=== PATIENT | female | born 1970 | race Caucasian/White ===

== ENCOUNTER → 2019-08-28 10:41 | Outpatient (CLI) | payer OTHER, SELFPAY ==
--- NOTE | ~2019-08-28 | XR_ITS ---
EXAMINATION: XR UGIAC wo kub DATE: 08/28/2019 11:36 INDICATION: Preprocedural evaluation prior to gastric bypass surgery. TECHNIQUE: Thick barium contrast with gas effervescent crystals were administered orally. Fluoroscop ic images of the esophagus, stomach, and proximal duodenum were obtained in various projections. The reafter, overhead images of the abdomen were performed. 1 minutes of fluroscopy. DAP 24. 35 images. FINDINGS: The esophagus is normal in caliber, without mucosal lesions or strictures. There is normal esophagea l peristalsis. There is a small hiatal hernia. Gastroesophageal reflux witnessed during the course o f the study. The gastric folds are normal. The proximal duodenum is also normal in appearance. IMPRESSION: 1. Small sliding hiatal hernia with gastroesophageal reflux. Reviewed, dictated and finalized at location B. SCRIPTS CURATOR
== END ==
PROVIDERS: PCP Family Medicine Sports Medicine
DX: Z01.818 Encounter for other preprocedural examination (principal); R13.10 Dysphagia, unspecified; K44.9 Diaphragmatic hernia without obstruction or gangrene
CPT/HCPCS: 74246

== ENCOUNTER → 2020-09-30 07:15 | Outpatient (CLI) | payer OTHER, SELFPAY ==
[2020-09-30 19:49] LABS: SARS-CoV-2 RNA PCR Negative
== END ==
PROVIDERS: PCP Family Medicine Sports Medicine; Visit Provider Family Medicine Sports Medicine
DX: Z20.822 Contact with and (suspected) exposure to COVID-19 (principal); R51.9 Headache, unspecified
CPT/HCPCS: C9803; U0003; U0005

== ENCOUNTER → 2020-11-25 15:35 | Outpatient (CLI) | payer OTHER, SELFPAY ==
--- NOTE | ~2020-11-25 | MR_ITS ---
EXAMINATION: MR brain IAC wo/w con EXAM DATE: 11/25/2020 16:25 INDICATION: Right hearing loss, vertigo right hearing loss. TECHNIQUE: Multi-sequential, multiplanar MR images of the brain, brainstem, internal auditory canals were obtained without contrast. Whole brain sagittal T1, axial diffusion, gradient echo (T2*), T1, T 2, FLAIR sequences obtained. High resolution coronal 3-D FIESTA, coronal T1 FSE, axial T1 FSPGR of t he internal auditory canals. Patient was then injected with 15 cc Multihance contrast intravenously. Postcontrast axial and coronal T1 weighted whole brain, axial and coronal high resolution T1 IAC seq uences obtained. There is no prior study for comparison. FINDINGS: No evidence of mastoid or middle ear opacification. The 7th/8th cranial nerve complexes a re symmetric, normal in course and caliber. No cerebellopontine angle masses. Posterior fossa unrem arkable. There are no areas of restricted diffusion to suggest acute infarction. There is no acute hemorrhage seen on the T2*, a hemosiderin sensitive sequence. No intraparenchymal brain mass. The ventricles a re normal in size. There are no extra-axial collections. Flow voids are seen in the cerebral arteri es on the T2-weighted sequences consistent with their expected patency. The orbits are unremarkable. Soft tissue is unremarkable. There are no areas of abnormal enhancement on the postcontrast image s. IMPRESSION: 1. Unremarkable brain MR brain IAC examination. Reviewed, dictated and finalized at location B.
[2020-11-25 15:56] LABS: Estimated Glomerular Filt Rate > 60
== END ==
DX: R42 Dizziness and giddiness (principal); H91.91 Unspecified hearing loss, right ear
CPT/HCPCS: 70553; A9577

== ENCOUNTER → 2021-11-25 10:40 | Outpatient (CLI) | payer OTHER, SELFPAY ==
--- NOTE | ~2021-11-25 | MM_ITS ---
EXAMINATION: MM screening manasa BI w oj HISTORY: Screening mammogram TECHNIQUE: Craniocaudal and mediolateral oblique 3-D tomosynthesis images were obtained and synthetic 2-D images were generated. CAD analysis was submitted and interpreted. COMPARISON: 10/20/2016 BREAST PARENCHYMAL COMPOSITION: The breasts are almost entirely fatty. FINDINGS: There is no suspicious mass, calcification, or architectural distortion to suggest malignan cy in either breast. There has been no suspicious interval change. IMPRESSION: 1. No mammographic evidence of malignancy. 2. Recommend routine screening mammography in one year. BI-RADS Category 1: Negative Reviewed, dictated and finalized at location A.
== END ==
PROVIDERS: PCP Family Medicine Sports Medicine; Visit Provider Obstetrics & Gynecology Gynecology
DX: Z12.31 Encounter for screening mammogram for malignant neoplasm of breast (principal)
CPT/HCPCS: 77063; 77067

== ENCOUNTER → 2022-07-03 10:46 | Outpatient (CLI) | payer OTHER, SELFPAY ==
--- NOTE | ~2022-07-03 | US_ITS ---
EXAMINATION: US pelvic complete DATE: 07/03/2022 11:12 INDICATION: Right adnexal fullness TECHNIQUE: Multiple transabdominal sonographic images of the pelvis were obtained. COMPARISON: 10/05/2016 FINDINGS: The uterus measures 8.6 x 3.5 x 4.8 cm. The endometrial complex measures 4 mm. The right ov elisa measures 3.5 x 2.9 x 3.4 cm. There is a 2.7 cm simple cyst of the right ovary. The left ovary suleman sures 2.3 x 1.1 x 2.3 cm. There is normal vascular flow in the ovaries. There is no free fluid in the pelvis. IMPRESSION: 1. No sonographic correlate for the patient's symptoms. Reviewed, dictated and finalized at location L. KILLER
== END ==
PROVIDERS: PCP Family Medicine Sports Medicine; Visit Provider Nurse Practitioner
DX: R19.09 Other intra-abdominal and pelvic swelling, mass and lump (principal)
CPT/HCPCS: 76856

== ENCOUNTER 2023-04-15 15:51 | Emergency (ER) | payer OTHER, SELFPAY ==
--- NOTE | ~2023-04-15 | XR_ITS ---
EXAMINATION: XR chest 1V portable Exam Date/Time: 04/15/2023 17:48 CDT HISTORY: chest pain Comparison: 11/19/2012. RESULT: Lines, tubes, and devices: None. Lungs and pleura: Clear. Cardiomediastinal silhouette: Stable. Other: No acute osseous or upper abdominal finding. IMPRESSION: No acute cardiopulmonary process. Reviewed, dictated and finalized at location K.
[2023-04-15 16:13] VITALS: BP 93/75; PULSE 93; RESP 16; TEMP 36.9; O2SAT 96
--- NOTE | 2023-04-15 16:17 | ECG_ITS ---
Measurements Intervals [place] Rate: 83 P: 60 IN: 152 QRS: 98 QRSD: 84 T: 67 QT: 379 QTc: 446 Interpretive Statements SINUS RHYTHM INDETERMINATE AXIS NO PREVIOUS ECG AVAILABLE FOR COMPARISON Electronically Signed On 04-16-2023 19:46:21 CDT by Taylor Poe M.D.
--- NOTE | 2023-04-15 16:17 | ED.GENADULT ---
HPI - General Adult General Chief complaint: Anxiety <Hawa Villaseñor GEAR TOOTH GRINDING MACHINE OPERATOR - Last Filed: 04/15/23 16:21> Stated complaint: anxiety attack <Hawa Villaseñor APRN - Last Filed: 04/15/23 16:21> Time Seen by Provider: 04/15/23 17:49 <Hawa Villaseñor GEAR TOOTH GRINDING MACHINE OPERATOR - Last Filed: 04/15/23 16:21> Source: patient <Ann Marie Crabtree PA-C - Last Filed: 04/16/23 03:12> Mode of arrival: ambulatory <Ann Marie Crabtree PA-C - Last Filed: 04/16/23 03:12> Limitations: no limitations <Ann Marie Crabtree PA-C - Last Filed: 04/16/23 03:12> History of Present Illness HPI narrative: Margy Duran is a 52 y/o female who presents with reports of having a panic attack, she states that she thinks it's her anxiey but she just doesn't know. She reports of having chest pain for about 5 days that sometimes radiates left and right and now in the middle of her chest. Her PCP is trying to get her started on something for her anxiety that works, but hasn't yet and now she is feeling a little short of breath. <Hawa Villaseñor APRN - Last Filed: 04/15/23 16:21> Margy Duran is a 52 y/o female who presents with reports of having a panic attack, she states that she thinks it's her anxiey but she just doesn't know. She reports of having chest pain for about 5 days that sometimes radiates left and right and now in the middle of her chest. Her PCP is trying to get her started on something for her anxiety that works, but hasn't yet and now she is feeling a little short of breath. Chest pain intermittent over the last 5 days, occurring up to 8 episodes per day. Feels as though stress and anxiety brings the chest pain on. Also reports cramping of her extremities related to hyperventilating. Patient has been on several different anxiety medications in the past and is currently being worked up for ADHD. Denies previous history of heart disease. Denies shortness of breath, lower extremity pain or swelling, nausea, vomiting, abdominal pain. <Ann Marie Crabtree PA-C - Last Filed: 04/16/23 03:12> Related Data Home medications: Home Medications Medication Instructions Recorded Confirmed metformin 500 mg tablet 500 mg PO QID 05/04/19 06/09/19 cyclobenzaprine 10 mg tablet 10 mg PO QPM 06/05/19 06/05/19 irbesartan 150 mg tablet 150 mg PO DAILY 06/05/19 06/09/19 <Hawa Champagne October, GEAR TOOTH GRINDING MACHINE OPERATOR - Last Filed: 04/15/23 16:21> Allergies/adverse reactions: Allergies Allergy/AdvReac Type Severity Reaction Status Date / Time niacin Allergy Severe Hypotension Verified 06/05/19 12:32 prochlorperazine Allergy Mild Agitated Verified 06/05/19 12:32 [From Compazine] <Hawa Champagne October, GEAR TOOTH GRINDING MACHINE OPERATOR - Last Filed: 04/15/23 16:21> Review of Systems Review of Systems: CONSTITUTIONAL: Denies fever, chills, or sweats. CARDIOVASCULAR: See HPI. RESPIRATORY: Denies cough or dyspnea. GASTROINTESTINAL: See HPI. GENITOURINARY: Denies dysuria or hematuria. SKIN: Denies rash or itching. MUSCULOSKELETAL: Denies back pain, joint pain, or myalgia. PSYCHIATRIC: See HPI. <Ann Marie Crabtree PA-C - Last Filed: 04/16/23 03:12> All systems reviewed & are unremarkable except as noted in HPI and below <Ann Marie Crabtree PA-C - Last Filed: 04/16/23 03:12> ON LICENSE OF [facility] Past Medical History Medical History: Medical History Colon cancer screening Dysphagia GERD (gastroesophageal reflux disease) Hyperlipidemia Hypertension Obesity, morbid, BMI 40.0-49.9 <Hawa Villaseñor, GEAR TOOTH GRINDING MACHINE OPERATOR - Last Filed: 04/15/23 16:21> Exam Narrative: GENERAL: Anxious appearing, obese with BMI of 33.7, non-toxic, in no acute distress. HEAD: Normocephalic, atraumatic. NECK: Supple. No adenopathy, no masses. RESPIRATORY: Airway patent, respirations nonlabored. Clear to auscultation bilaterally, no rales, rhonchi, wheezing. CARDIOVASCULAR: Regular rate and rhythm without murmurs, rubs, or gallops. Radial pulses 2+ and equal bi
[2023-04-15] MEDS: hydrOXYzine HCL 25 MG TABLET 50 MG PO (16:52)
[2023-04-15] MEDS: ONDANSETRON HCL ODT 4 MG TABLET PO (16:52)
[2023-04-15 18:48] LABS: Basophils Percent Auto 0.5 % (0.2-1.2); Eosinophils Absolute Auto 0.4 K/mm3 (0-0.3); Eosinophils Percent Auto 4.2 % (0-4.4); Hematocrit 42.1 % (37.0-47.0); Hemoglobin 14.7 g/dL (12.0-15.0); Immature Granulocyte Absolute 0.02 K/mm3 (0.00-0.031); Immature Granulocyte Percent A 0.2 % (0-0.5); Lymphocytes Absolute Auto 0.74 K/mm3 (0.9-3.2); Lymphocytes Percent Auto 8.6 % (18.3-44.2); Mean Corpuscular HGB Conc 34.9 g/dl (32-36); Mean Corpuscular Hemoglobin 30.7 pg (26-34); Mean Corpuscular Volume 87.9 fl (80-100); Mean Platelet Volume 10.2 fl (7.4-10.4); Monocytes Absolute Auto 0.4 K/mm3 (0.1-0.6); Neutrophils Percent Auto 81.5 % (45.5-73.1); Platelet Count Result 246 k/mm3 (150-375); Red Blood Count 4.79 M/mm3 (4.2-5.4); Red Cell Distribution Width 13.2 % (11.5-14.5); White Blood Count 8.6 K/mm3 (4.5-10.0)
[2023-04-15 18:59] LABS: Alanine Aminotransferase 24 U/L (6-35); Albumin Level 4.4 g/dL (3.5-5.1); Alkaline Phosphatase 73 U/L (38-126); Anion Gap 4 mmol/L (8-16); Aspartate Amino Transferase 35 U/L (14-36); Bilirubin,Total 0.9 mg/dL (0.2-1.3); Blood Urea Nitrogen 14 mg/dL (7-17); Calcium 9.3 mg/dL (8.4-10.2); Carbon Dioxide 33 mmol/L (22-30); Chloride 95 mmol/L (98-107); Estimated CRCL calculation 75 ml/min; Estimated Glomerular Filt Rate > 60; Glucose 111 mg/dL (65-110); Magnesium 1.8 mg/dL (1.6-2.3); Potassium 3.9 mmol/L (3.4-5.0); Sodium 132 mmol/L (137-145)
[2023-04-15 19:10] LABS: Troponin I < 0.012 ng/mL (0.000-0.034)
== END 2023-04-15 19:28 | disposition home or self-care (01) ==
PROVIDERS: Nurse Practitioner Family; Emergency Provider Physician Assistant; PCP Family Medicine Sports Medicine
DX: F41.9 Anxiety disorder, unspecified (principal); R07.89 Other chest pain; K21.9 Gastro-esophageal reflux disease without esophagitis; E78.5 Hyperlipidemia, unspecified; I10 Essential (primary) hypertension; E66.01 Morbid (severe) obesity due to excess calories; Z68.33 Body mass index [BMI] 33.0-33.9, adult
CPT/HCPCS: 36415; 71045; 80053; 83735; 84484; 85025; 93005; 99284; A9270

== ENCOUNTER 2024-12-28 00:20 | Day surgery (SDC) | payer OTHER, SELFPAY ==
[2024-12-07 15:33] VITALS: BMI 31.6
--- OUTSIDE RECORDS SUMMARY | 2024-12-28 00:24 | XMS_ITS | Patient Health Record ---
Author Organization [facility] [address] Address [address] [place] [address] Care Team Providers Care Academic Department Chair Name Role Phone Paul Garcia MD Primary Care Provider UnavailLucita Jarvis Unavailable [phone] Bartolome Ferguson Unavailable [phone] Radha Smith Unavailable [phone] Allergies Allergen (clinical drug ingredient) Drug/Non Drug Allergy documented on EMR Reaction Allergy Type Onset Date Status Niacin Unknown Drug Allergy 11/07/2023 Active Reason For Referral No Information Medications Medication SIG (Take, Route, Frequency, Duration) Notes Start Date End Date Status hydrOXYzine HCl 25 MG take 1/2 to 1 tab three times a day as needed Oral; Duration: 30 days Active Ondansetron 4 MG Oral 11/07/2023 Ac tive Triamterene-HCTZ 37.5-25 MG Oral 11/07/2023 Active Meclizine HCl 25 MG Oral 11/07/2023 Active Metaxalone 800 MG Oral 11/07/2023 A ctive ARIPiprazole 5 MG 1 tablet Oral Once a day; Duration: 90 days Active Methylphenidate HCl ER (OSM) 27 MG 1 tablet in the morning Orally Once a day; Duration: 30 days 12/23/2024 01/22/2025 Active Social History Tobacco Use: Social History Observation Description Date Details (start date - stop date) Former Smoker NA - NA Sex Assigned At : Social History Observation Description Sex Assigned At Female Tobacco Control (Standard) Question Answer Notes How long has it been since you last smoked? 5-10 years Tobacco use: Former smoker Section Notes: Social History Substance Use Do you or have you ever smoked tobacco?: Former smoker How much tobacco do you smoke?: None Do you or have you ever used e-cigarettes or vape?: Never used electronic cigarettes What was the date of your most recent tobacco screening?: 11/07/2023 Has tobacco cessation counseling been provided?: No What is your level of alcohol consumption?: Occasional How many years have you consumed alcohol?: 30 Do you use any illicit or recreational drugs?: No Have you used IV drugs?: No What is your level of caffeine consumption?: Occasional Education and Occupation What is the highest grade or level of school you have completed or the highest degree you have received?: Some college, no degree Are you currently employed?: Yes Who is your employer?: [employer] Marriage and Sexuality What is your relationship status?: Are you sexually active?: Yes Do you use protection during sex?: No How many children do you have?: 3 Home and Environment Are there any guns present in your home?: No Advance Directive Do you have an advance directive?: No Do you have a medical power of trademark attorney?: No Gender Identity and LGBTQ Identity Assigned sex at : Female First name used: LISA Social History Substance Use Do you or have you ever smoked tobacco?: Former smoker How much tobacco do you smoke?: None Do you or have you ever used e-cigarettes or vape?: Never used electronic cigarettes What was the date of your most recent tobacco screening?: 11/07/2023 Has tobacco cessation counseling been provided?: No What is your level of alcohol consumption?: Occasional How many years have you consumed alcohol?: 30 Do you use any illicit or recreational drugs?: No Have you used IV drugs?: No What is your level of caffeine consumption?: Occasional Education and Occupation What is the highest grade or level of school you have completed or the highest degree you have received?: Some college, no degree Are you currently employed?: Yes Who is your employer?: [employer] Marriage and Sexuality What is your relationship status?: Are you sexually active?: Yes Do you use protection during sex?: No How many children do you have?: 3 Home and Environment Are there any guns present in your home?: No Advance Directive Do you have an advance directive?: No Do you have a medical power of trademark attorney?: No Public Health and Travel Have you been to an area known to be high risk for COVID-19?: No Gender Identity and LGBTQ Identity Assigned sex at : Female First name used: LISA Social History Substance Use Do you or have you ever smoked tobacco?: Former smoker How much tobacco do you smoke?: None Do you or have you ever used e-cigarettes or vape?: Never used electronic cigarettes What was the date of your most recent tobacco screening?: 11/07/2023 Has tobacco cessation counseling been provided?: No What is your level of alcohol consumption?: Occasional How many years have you consumed alcohol?: 30 Do you use any illicit or recreational drugs?: No Have you used IV drugs?: No What is your level of caffeine consumption?: Occasional Education and Occupation What is the highest grade or level of school you have completed or the highest degree you have received?: Some college, no degree Are you currently employed?: Yes Who is your employer?: [employer] Marriage and Sexuality What is your relationship status?: Are you sexually active?: Yes Do you use protection during sex?: No How many children do you have?: 3 Home and Environment Are there any guns present in your home?: No Advance Directive Do you have an advance directive?: No Do you have a medical power of trademark attorney?: No Gender Identity and LGBTQ Identity Assigned sex at : Female First name used: LISA Social History Substance Use Do you or have you ever smoked tobacco?: Former smoker How much tobacco do you smoke?: None Do you or have you ever used e-cigarettes or vape?: Never used electronic cigarettes What was the date of your most recent tobacco screening?: 11/07/2023 Has tobacco cessation counseling been provided?: No What is your level of alcohol consumption?: Occasional How many years have you consumed alcohol?: 30 Do you use any illicit or recreational drugs?: No Have you used IV drugs?: No What is your level of caffeine consumption?: Occasional Education and Occupation What is the highest grade or level of school you have completed or the highest degree you have received?: Some college, no degree Are you currently employed?: Yes Who is your employer?: [employer] Marriage and Sexuality What is your relationship status?: Are you sexually active?: Yes Do you use protection during sex?: No How many children do you have?: 3 Home and Environment Are there any guns present in your home?: No Advance Directive Do you have an advance directive?: No Do you have a medical power of trademark attorney?: No Gender Identity and LGBTQ Identity Assigned sex at : Female First name used: LISA Social History Substance Use Do you or have you ever smoked tobacco?: Former smoker How much tobacco do you smoke?: None Do you or have you ever used e-cigarettes or vape?: Never used electronic cigarettes What was the date of your most recent tobacco screening?: 11/07/2023 Has tobacco cessation counseling been provided?: No What is your level of alcohol consumption?: Occasional How many years have you consumed alcohol?: 30 Do you use any illicit or recreational drugs?: No Have you used IV drugs?: No What is your level of caffeine consumption?: Occasional Education and Occupation What is the highest grade or level of school you have completed or the highest degree you have received?: Some college, no degree Are you currently employed?: Yes Who is your employer?: [employer] Marriage and Sexuality What is your relationship status?: Are you sexually active?: Yes Do you use protection during sex?: No How many children do you have?: 3 Home and Environment Are there any guns present in your home?: No Advance Directive Do you have an advance directive?: No Do you have a medical power of trademark attorney?: No Gender Identity and LGBTQ Identity Assigned sex at : Female First name used: LISA Problems Problem Type SNOMED Code ICD Code Onset Dates Problem Status W/U Status Risk Notes Problem Mild recurrent major depression (38453429) Major depressive disorder, recurrent, mild (F33.0) Active confirmed Problem Moderate recurrent major depression (99960530) Major depressive disorder, recurrent, moderate (F33.1) 11/07/19 Active confirmed Problem Generalized anxiety disorder (63342471) Generalized anxiety disorder (F41.1) 11/07/19 Active confirmed Problem Posttraumatic stress disorder (15643469) Post-traumatic stress disorder, chronic (F43.12) 11/07/19 Active confirmed Problem Attention deficit hyperactivity disorder, combined type (94503509) Attention-deficit hyperactivity disorder, combined type (F90.2) 11/07/19 Active confirmed Problem Panic disorder (532986729) Panic attacks (F41.0) Active confirmed Vital Signs Heart Rate 102 /min 05/04/2024 Height-cm 160.02 cm 10/14/2024 Blood pressure diastolic 74 mm Hg 05/04/2024 Weight-kg 85.73 kg 05/04/2024 Height 63.00 in 10/14/2024 Blood pressure systolic 113 mm Hg 05/04/2024 Weight 189 lbs 05/04/2024 BMI 33.48 kg/m2 05/04/2024 Encounters Encounter Location Date Provider Diagnosis [address] [address] 01/09/2024 Radha Smith Major depressive disorder, recurrent, moderate F33.1 ; Attention-deficit hyperactivity disorder, combined type F90.2 ; Generalized anxiety disorder F41.1 ; Panic attacks F41.0 and Post-traumatic stress disorder, chronic F43.[address] [address] 04/03/2024 Radha Smith Major depressive disorder, recurrent, moderate F33.1 ; Attention-deficit hyperactivity disorder, combined type F90.2 ; Generalized anxiety disorder F41.1 ; Panic attacks F41.0 and Post-traumatic stress disorder, chronic F43.[address] [address] 05/04/2024 Lucita Mcgraw Major depressive disorder, recurrent, moderate F33.1 ; Generalized anxiety disorder F41.1 ; Panic attacks F41.0 ; Attention-deficit hyperactivity disorder, combined type F90.2 and Post-traumatic stress disorder, chronic F43.[address] [address] 09/14/2024 Lucita Mcgraw [address] [address] 09/14/2024 Lucita Mcgraw Major depressive disorder, recurrent, moderate F33.1 ; Generalized anxiety disorder F41.1 ; Panic attacks F41.0 ; Attention-deficit hyperactivity disorder, combined type F90.2 and Post-traumatic stress disorder, chronic F43.[address] [place] [address] 10/14/2024 Lucita Hagopian Attention-deficit hyperactivity disorder, combined type F90.2 ; Major depressive disorder, recurrent, mild F33.0 ; Generalized anxiety disorder F41.1 ; Post-traumatic stress disorder, chronic F43.12 ; Panic attacks F41.0 and Encounter for screening for depression Z13.[address] [address] 12/23/2024 Lucita Mcgraw Attention-deficit hyperactivity disorder, combined type F90.[address] [address] 03/25/2024 Radha Sarah Major depressive disorder, recurrent, moderate F33.1 and Attention-deficit hyperactivity disorder, combined type F90.[address] [address] 09/04/2024 Lucita Mcgraw Major depressive disorder, recurrent, moderate F33.1 and Attention-deficit hyperactivity disorder, combined type F90.2 [facility] [address] [address] 11/20/2024 Lucita Mcgraw Attention-deficit hyperactivity disorder, combined type F90.[address] [address] 10/14/2024 Lucita Mcgraw Attention-deficit hyperactivity disorder, combined type F90.2 Assessments Encounter Date Diagnosis (ICD Code) Assessment Notes Treatment Notes Treatment Clinical Notes Section Notes 01/09/2024 Major depressive disorder, recurrent, moderate (ICD-10 - F33.1) cont abilify 5mg daily discuss options, increase atomoxetine or leave as is and see if life settles. She would like to increase, education medications and treatment course. consider counseling-says right now is not the time with bills fu 2 months, earlier if concerns notes:-workup done per pcp and cardiology (cleared for ADHD meds)-hx stimulant misuse younger, possibly self medicating ADHD, but caution. hx cannabis gummies.-has tried 3 SSRI, an SNRI, wellbutrin, trintellix, generally not tolerated, often more irritable; propranolol. 03/25/2024 Major depressive disorder, recurrent, moderate (ICD-10 - F33.1) 04/03/2024 Major depressive disorder, recurrent, moderate (ICD-10 - F33.1) cont abilify 5mg daily increase anxiety and irritable with stressors. discuss options: increase abilify, retry/start anxiety medication, increase atomoxetine, pros/cons she would rather not make changes before the wedding, in case has issues/side effects. review r/b/se prioritize sleep recommend therapy-cost prohibitive f/u 1 month, earlier if concerns notes:-workup done per pcp and cardiology (cleared for ADHD meds)-hx stimulant misuse younger, possibly self medicating ADHD, but caution. hx cannabis gummies.-has tried 3 SSRI, an SNRI, wellbutrin, trintellix, generally not tolerated, often more irritable; propranolol. 05/04/2024 Major depressive disorder, recurrent, moderate (ICD-10 - F33.1) MDD: - continue Abilify 2 mg daily; consider increase next visit dependent on symptoms and situational factors Anxiety/Panic: - Continue current hydroxyzine regimen as needed for anxiety/panic attacks. - continue clonidine 0.1 mg twice a day - Encourage non-pharmacolog ical anxiety management techniques, such as deep breathing exercises, mindfulness, and relaxation techniques. - Encourage good sleep hygiene, including maintaining a consistent sleep schedule, creating a relaxing bedtime routine.. - Reassess sleep quality during the next follow-up appointment and consider further evaluation or intervention if necessary. ADHD: - Continue atomoxetine 60 mg daily - Reports no significant changes in symptoms since the dosage increase, but notes situational factors may be affecting assessment. 09/04/2024 Major depressive disorder, recurrent, moderate (ICD-10 - F33.1) 09/14/2024 Major depressive disorder, recurrent, moderate (ICD-10 - F33.1) Attention Deficit Hyperactivity Disorder (ADHD) Assessment: Patient reports that Strattera (atomoxetine) at the current dose of 60 mg is not effective in managing her ADHD symptoms. She is currently working four jobs, indicating a busy schedule that may be impacting symptom management. Previous medication trials and dosage adjustments were not discussed in detail. Plan: - Increase Strattera (atomoxetine) from 60 mg to 80 mg daily - Follow up in 4 weeks to assess efficacy of increased dose - If no improvement noted at follow-up, consider exploring alternative treatment options Anxiety Assessment: Patient reports ongoing benefit from as-needed use of hydroxyzine for anxiety management, describing it as her saving tiffani. Clonidine, previously prescribed for anxiety (0.1 mg twice daily), is not being taken due to sedation and difficulty waking up, indicating low tolerance for medications with sedating effects. Plan: - Continue hydroxyzine as needed for anxiety - Discontinue clonidine 0.1 mg twice daily Depression Assessment: Reports stable mood. Plan: - Continue abilify 5 mg daily 10/14/2024 Major depressive disorder, recurrent, mild (ICD-10 - F33.0) 10/14/2024 Attention-defici t hyperactivity disorder, combined type (ICD-10 - F90.2) 10/14/2024 Attention-defici t hyperactivity disorder, combined type (ICD-10 - F90.2) 11/20/2024 Attention-defici t hyperactivity disorder, combined type (ICD-10 - F90.2) 12/23/2024 Attention-defici t hyperactivity disorder, combined type (ICD-10 - F90.2) 10/14/2024 Generalized anxiety disorder (ICD-10 - F41.1) 09/14/2024 Generalized anxiety disorder (ICD-10 - F41.1) Attention Deficit Hyperactivity Disorder (ADHD) Assessment: Patient reports that Strattera (atomoxetine) at the current dose of 60 mg is not effective in managing her ADHD symptoms. She is currently working four jobs, indicating a busy schedule that may be impacting symptom management. Previous medication trials and dosage adjustments were not discussed in detail. Plan: - Increase Strattera (atomoxetine) from 60 mg to 80 mg daily - Follow up in 4 weeks to assess efficacy of increased dose - If no improvement noted at follow-up, consider exploring alternative treatment options Anxiety Assessment: Patient reports ongoing benefit from as-needed use of hydroxyzine for anxiety management, describing it as her saving tiffani. Clonidine, previously prescribed for anxiety (0.1 mg twice daily), is not being taken due to sedation and difficulty waking up, indicating low tolerance for medications with sedating effects. Plan: - Continue hydroxyzine as needed for anxiety - Discontinue clonidine 0.1 mg twice daily Depression Assessment: Reports stable mood. Plan: - Continue abilify 5 mg daily 09/04/2024 Attention-defici t hyperactivity disorder, combined type (ICD-10 - F90.2) 05/04/2024 Generalized anxiety disorder (ICD-10 - F41.1) MDD: - continue Abilify 2 mg daily; consider increase next visit dependent on symptoms and situational factors Anxiety/Panic: - Continue current hydroxyzine regimen as needed for anxiety/panic attacks. - continue clonidine 0.1 mg twice a day - Encourage non-pharmacolog ical anxiety management techniques, such as deep breathing exercises, mindfulness, and relaxation techniques. - Encourage good sleep hygiene, including maintaining a consistent sleep schedule, creating a relaxing bedtime routine.. - Reassess sleep quality during the next follow-up appointment and consider further evaluation or intervention if necessary. ADHD: - Continue atomoxetine 60 mg daily - Reports no significant changes in symptoms since the dosage increase, but notes situational factors may be affecting assessment. 04/03/2024 Attention-defici t hyperactivity disorder, combined type (ICD-10 - F90.2) cont atomoxetine 60mg qam past testing supports, had one malingering indicatordid get cardiac clearance letter 03/25/2024 Attention-defici t hyperactivity disorder, combined type (ICD-10 - F90.2) 01/09/2024 Attention-defici t hyperactivity disorder, combined type (ICD-10 - F90.2) increase atomoxetine to 60mg qam past testing supports, had one malingering indicatordid get cardiac clearance letter 01/09/2024 Generalized anxiety disorder (ICD-10 - F41.1) cont clonidine 0.1mg BID minimize caffeine 04/03/2024 Generalized anxiety disorder (ICD-10 - F41.1) cont clonidine 0.1mg BID minimize caffeine 05/04/2024 Panic attacks (ICD-10 - F41.0) MDD: - continue Abilify 2 mg daily; consider increase next visit dependent on symptoms and situational factors Anxiety/Panic: - Continue current hydroxyzine regimen as needed for anxiety/panic attacks. - continue clonidine 0.1 mg twice a day - Encourage non-pharmacolog ical anxiety management techniques, such as deep breathing exercises, mindfulness, and relaxation techniques. - Encourage good sleep hygiene, including maintaining a consistent sleep schedule, creating a relaxing bedtime routine.. - Reassess sleep quality during the next follow-up appointment and consider further evaluation or intervention if necessary. ADHD: - Continue atomoxetine 60 mg daily - Reports no significant changes in symptoms since the dosage increase, but notes situational factors may be affecting assessment. 09/14/2024 Panic attacks (ICD-10 - F41.0) Attention Deficit Hyperactivity Disorder (ADHD) Assessment: Patient reports that Strattera (atomoxetine) at the current dose of 60 mg is not effective in managing her ADHD symptoms. She is currently working four jobs, indicating a busy schedule that may be impacting symptom management. Previous medication trials and dosage adjustments were not discussed in detail. Plan: - Increase Strattera (atomoxetine) from 60 mg to 80 mg daily - Follow up in 4 weeks to assess efficacy of increased dose - If no improvement noted at follow-up, consider exploring alternative treatment options Anxiety Assessment: Patient reports ongoing benefit from as-needed use of hydroxyzine for anxiety management, describing it as her saving tiffani. Clonidine, previously prescribed for anxiety (0.1 mg twice daily), is not being taken due to sedation and difficulty waking up, indicating low tolerance for medications with sedating effects. Plan: - Continue hydroxyzine as needed for anxiety - Discontinue clonidine 0.1 mg twice daily Depression Assessment: Reports stable mood. Plan: - Continue abilify 5 mg daily 10/14/2024 Post-traumatic stress disorder, chronic (ICD-10 - F43.12) 10/14/2024 Panic attacks (ICD-10 - F41.0) 09/14/2024 Attention-defici t hyperactivity disorder, combined type (ICD-10 - F90.2) Attention Deficit Hyperactivity Disorder (ADHD) Assessment: Patient reports that Strattera (atomoxetine) at the current dose of 60 mg is not effective in managing her ADHD symptoms. She is currently working four jobs, indicating a busy schedule that may be impacting symptom management. Previous medication trials and dosage adjustments were not discussed in detail. Plan: - Increase Strattera (atomoxetine) from 60 mg to 80 mg daily - Follow up in 4 weeks to assess efficacy of increased dose - If no improvement noted at follow-up, consider exploring alternative treatment options Anxiety Assessment: Patient reports ongoing benefit from as-needed use of hydroxyzine for anxiety management, describing it as her saving tiffani. Clonidine, previously prescribed for anxiety (0.1 mg twice daily), is not being taken due to sedation and difficulty waking up, indicating low tolerance for medications with sedating effects. Plan: - Continue hydroxyzine as needed for anxiety - Discontinue clonidine 0.1 mg twice daily Depression Assessment: Reports stable mood. Plan: - Continue abilify 5 mg daily 05/04/2024 Attention-defici t hyperactivity disorder, combined type (ICD-10 - F90.2) MDD: - continue Abilify 2 mg daily; consider increase next visit dependent on symptoms and situational factors Anxiety/Panic: - Continue current hydroxyzine regimen as needed for anxiety/panic attacks. - continue clonidine 0.1 mg twice a day - Encourage non-pharmacolog ical anxiety management techniques, such as deep breathing exercises, mindfulness, and relaxation techniques. - Encourage good sleep hygiene, including maintaining a consistent sleep schedule, creating a relaxing bedtime routine.. - Reassess sleep quality during the next follow-up appointment and consider further evaluation or intervention if necessary. ADHD: - Continue atomoxetine 60 mg daily - Reports no significant changes in symptoms since the dosage increase, but notes situational factors may be affecting assessment. 04/03/2024 Panic attacks (ICD-10 - F41.0) cont hydroxyzine 25mg, take 1/2 to 1 tab TID prn infrequent use as above 01/09/2024 Panic attacks (ICD-10 - F41.0) cont hydroxyzine 25mg, take 1/2 to 1 tab TID prn infrequent use as above 01/09/2024 Post-traumatic stress disorder, chronic (ICD-10 - F43.12) probableas above 05/04/2024 Post-traumatic stress disorder, chronic (ICD-10 - F43.12) MDD: - continue Abilify 2 mg daily; consider increase next visit dependent on symptoms and situational factors Anxiety/Panic: - Continue current hydroxyzine regimen as needed for anxiety/panic attacks. - continue clonidine 0.1 mg twice a day - Encourage non-pharmacolog ical anxiety management techniques, such as deep breathing exercises, mindfulness, and relaxation techniques. - Encourage good sleep hygiene, including maintaining a consistent sleep schedule, creating a relaxing bedtime routine.. - Reassess sleep quality during the next follow-up appointment and consider further evaluation or intervention if necessary. ADHD: - Continue atomoxetine 60 mg daily - Reports no significant changes in symptoms since the dosage increase, but notes situational factors may be affecting assessment. 04/03/2024 Post-traumatic stress disorder, chronic (ICD-10 - F43.12) probableas above 09/14/2024 Post-traumatic stress disorder, chronic (ICD-10 - F43.12) Attention Deficit Hyperactivity Disorder (ADHD) Assessment: Patient reports that Strattera (atomoxetine) at the current dose of 60 mg is not effective in managing her ADHD symptoms. She is currently working four jobs, indicating a busy schedule that may be impacting symptom management. Previous medication trials and dosage adjustments were not discussed in detail. Plan: - Increase Strattera (atomoxetine) from 60 mg to 80 mg daily - Follow up in 4 weeks to assess efficacy of increased dose - If no improvement noted at follow-up, consider exploring alternative treatment options Anxiety Assessment: Patient reports ongoing benefit from as-needed use of hydroxyzine for anxiety management, describing it as her saving tiffani. Clonidine, previously prescribed for anxiety (0.1 mg twice daily), is not being taken due to sedation and difficulty waking up, indicating low tolerance for medications with sedating effects. Plan: - Continue hydroxyzine as needed for anxiety - Discontinue clonidine 0.1 mg twice daily Depression Assessment: Reports stable mood. Plan: - Continue abilify 5 mg daily 10/14/2024 Encounter for screening for depression (ICD-10 - Z13.31) 10/14/2024 Other Lisa Duran, adult female with history of ADHD, presenting with ongoing irritability, racing thoughts, and anxiety despite current treatment with atomoxetine and aripiprazole. Attention Deficit Hyperactivity Disorder (ADHD) Assessment: Patient reports ongoing symptoms of ADHD, including irritability, racing thoughts, and difficulty with focus. Current treatment with atomoxetine 80 mg and aripiprazole 5 mg has been ineffective in managing symptoms. Patient describes feeling constantly going 100 miles an hour mentally, which leads to frustration when others cannot keep up with her thought process. Previous trial of atomoxetine showed initial improvement but efficacy waned over time. Patient denies current use of cannabis or other substances, with last reported use of stimulants in high school. Given the persistence of symptoms and inadequate response to current medication regimen, a trial of a different medication class is warranted. Plan: - Discontinue atomoxetine 80 mg - Initiate methylphenidate extended-release (Concerta) 27 mg PO daily - Starting at 27 mg due to patient's lower blood pressure - Informed patient that this medication may help alleviate some anxiety symptoms - Continue aripiprazole 5 mg (dose and frequency not specified in transcript) - Urine drug test required at next visit to confirm medication adherence - Follow-up appointment in 3-4 weeks - In-person visit required for next appointment Anxiety Assessment: Patient reports persistent anxiety, stating she is always anxious about something. While the severity has decreased, worry remains constant. Patient has experienced near-panic attacks, particularly in public spaces like [employer], but has been able to manage these episodes without full escalation. Patient uses hydroxyzine as needed for anxiety management, particularly in social situations. Recent life stressors, including her daughter's surgical complications and the loss of a pet, have contributed to heightened anxiety. Plan: - Continue hydroxyzine as needed for anxiety (dose and frequency not specified in transcript) - Monitor anxiety symptoms with the initiation of methylphenidate, as it may help alleviate some anxiety - Encourage continued use of coping strategies that have been effective in preventing panic attacks Emotional Eating Assessment: Patient acknowledges occasional emotional eating, particularly during times of stress. She reports some overindulgence following the loss of her dog and mentions stress-induced candy consumption. However, patient has a history of weight loss surgery which limits her ability to overeat without experiencing physical discomfort. Plan: - Monitor eating habits and emotional triggers - Encourage healthy coping mechanisms for stress management Plan Of Treatment Next Appt Details Provider Name:Lucita Carty natalio, 01/04/2025 03:30:00 PM, [address], [facility] [address], [place], [address], Insurance Providers Payer Name Payer Address Payer Phone Subscriber Number Group Number Insured Name Patient Relationship to Insured Coverage Start Date Coverage End Date [facility] [address] [place] [phone] [id number] ANNE DURAN Self - patient is the insured Medical (General) History Medical History History ICD Code Problems: Attention deficit hyperactivit y disorder, combined type Chronic post-traumatic stress disorder Generalized anxiety disorder Moderate recurrent major depression Obesity Panic attack , Surgical History Surgery Date(Month/Year) Tonsilectomy/adenoids 06/24/1982 Endometrial ablation (29386) with tubal 06/24/2002
--- OUTSIDE RECORDS SUMMARY | 2024-12-28 00:25 | XMS_ITS | Clinical Summary ---
Author Organization [facility] Address [facility] [place] [address] Care Team Providers Care Electrical Prospecting Operator Name Role Phone Kareem Torres MD Primary Care Provider [phone] Gagan Reddy MD Unavailable [phone] Social History Tobacco Use Types Packs/Day Years Used Date Smoking Tobacco: Never Assessed Comments Unknown Sex and Gender Information Value Date Recorded Sex Assigned at Not on file Legal Sex Female 12:58 PM CDT Gender Identity Not on file Sexual Orientation Not on file Plan of Treatment Health Maintenance Due Date Last Done Comments Cervical Cancer Screening Pa p Smear (Age 30 to 64) Every 3 Years 1971 Colorectal Cancer Screening Colonoscopy (10 Years) 1971 Annual Physical 1974 Hepatitis C 1989 DTaP, Tdap and Td Vaccines ( 1 - Tdap) 1990 Hepatitis B Vaccines (1 of 3 - 19+ 3-dose series) 1990 Cervical Cancer Screening Pa p with HPV Testing (Age 30 to 64) Every 5 Years 2001 Cervical Cancer Screening with HPV 2001 Mammogram Screening 2011 Pneumococcal Vaccine: 50+ Ye ars (1 of 1 - PCV) 2021 Zoster Vaccines (1 of 2) 2021 COVID-19 Vaccine (2023-2 5 season) 2024 Meningococcal B Vaccine Aged Out No l onger eligible based on patient's age to complete this topic Meningococcal Vaccine Aged Out No zachary edgardo eligible based on patient's age to complete this topic RSV Immunizations Under 20 Months Aged Out No longer eligible based on patient's age to complete this topic Insurance [facility] Care Teams Electrical Prospecting Operator Relationship Specialty Start Date End Date Kareem Torres MD [address] [place] [address] [address] [place] [id number] PCP - General FAMILY PRACTICE 12/05/22 Gagan Reddy MD [address] [place] [address] FAMILY MEDICINE SPORTS MEDICINE 12/05/22
--- OUTSIDE RECORDS SUMMARY | 2024-12-28 00:25 | XMS_ITS ---
Author Organization [facility] Address [address] [place] [address] Care Team Providers Care Lead Printer Name Role Phone Paul Garcia MD Primary Care Provider Lucita Ty Unavailable [phone] Bartolome Portillo Unavailable [phone] REASON FOR VISIT UDS for controlled medication Social History Sex Assigned At : Social History Observation Description Sex Assigned At Female Encounters Encounter Location Date Provider Diagnosis [facility] [address] [place] [address] 10/15/2024 Bartolome Portillo Plan Of Treatment Next Appt Details Provider Name:Lucita lance, 01/04/2025 03:30:00 PM, [address], [address], [place], [address], Progress Notes * ANNE HASTINGS MDOB:1969 (54 yo F)Acc No.[id number]:10/15/2024 Progress Note Patient: Jong NANE EL Provider: Emily PORTILLO MD :1970 A ge:54 Y S ex:Female Date:10/15/2024 Address:[address], [facility] Pcp:Paul Garcia MD Subjective: * Chief Complaints: * 1 . UDS for controlled medication. * Active Problem List F33.1 Major depressive dis order, recurrent, moderate Onset Date:11/07/2023Modified On:12/09/2023U Status:confirmed F41.1 Generalized anxiety disorder Onset Date:11/07/2023Modified On:12/09/2023 Status:confirmed F41.0 Panic attacks Modified On:12/09/2023 Status:confirmed F90.2 Attention-deficit hy peractivity disorder, combined type Onset Date:11/07/2023Modified On:12/09/2023U Status:confirmed F43.12 Post-traumatic stres s disorder, chronic Onset Date:11/07/2023Modified On:12/09/2023U Status:confirmed F33.0 Major depressive dis order, recurrent, mild Modified On:10/14/2024 Status:confirmed * Medical History: Objective: * Vitals: Assessment: Plan: * Treatment: * Billing Information: * Visit Code: * Procedure Codes: * Electronic signature of Constantin Portillo MD on 12/28/2024 at 12:24 AM CDT Sign off status: Pending * Provider: Emily PORTILLO MD Date: 0 10/15/2024 Generated for Marcy beltran/Rubens/Miyaitting on: 12/28/2024 12:24 AM CDT
--- OUTSIDE RECORDS SUMMARY | 2024-12-28 00:25 | XMS_ITS | Clinical Summary ---
Author Organization [facility] Address [address] [place] [address] Care Team Providers Care Glue Sprayer Name Role Phone Unavailable Primary Care Provider Unavailabl e Source Comments [facility],non-owned Affiliates and Associated Physician Practices is amultiple site organization consisting of ambulatory clinics and hospital sitesin [place], [place], [place] and [place]. This disclosure is being madepursuant to the Care Everywhere program and may not contain all information available regarding this patient. Last updated 18.[facility] Allergies Active Allergy Reactions Criticality Noted Date Comments Niacin Other 08/06/2019 hypotensive Medications * Be aware that medications may not be up to date on this document. Alwaysverify current medications with the patient. metFORMIN (GLUCOPHAGE) 500 MG tablet Take 2,000 mg by mouth once daily Active LOSARTAN POTASSIUM-HCTZ PO Active fenofibrate (FENOGLIDE) 120 MG Take 120 mg by mouth once daily Active Multiple Vitamins-Mineral s (MULTIVITAL PO) Active Social History Tobacco Use Types Packs/Day Years Used Date Smoking Tobacco: Former Cigarettes Q uit: 2018 Smokeless Tobacco: Never Tobacco Cessation:Counseling Given: Yes Comments No Sex and Gender Information Value Date Recorded Sex Assigned at Not on file Legal Sex Female 6:20 AM TISSUE TECHNOLOGIST Gender Identity Not on file Sexual Orientation Not on file Last Filed Vital Signs Vital Sign Reading Time Taken Comments Blood Pressure 126/86 08/06/2019 6:52 PM TISSUE TECHNOLOGIST Pulse 106 08/06/2019 6:52 PM TISSUE TECHNOLOGIST Temperature 36.8 C (98.3 F) 08/06/2019 6:52 PM TISSUE TECHNOLOGIST Respiratory Rate 18 08/06/2019 6:52 PM TISSUE TECHNOLOGIST Oxygen Saturation 98% 08/06/2019 6:52 PM TISSUE TECHNOLOGIST Inhaled Oxygen Concentration - - Weight 104.3 kg (230 lb) 08/06/2019 6:52 PM TISSUE TECHNOLOGIST Height 160 cm (5' 3) 08/06/2019 6:52 PM TISSUE TECHNOLOGIST Body Mass Index 40.74 08/06/2019 6:52 PM TISSUE TECHNOLOGIST Plan of Treatment Health Maintenance Due Date Last Done Comments COLOGUARD (AGES 45-75) - COL ON CA SCREENING 1971 COLON MONITORING 1971 COLONOSCOPY - COLON CA SCREENING 1971 CT COLONOGRAPHY - COLON CA SCREENING 1971 Colorectal Cancer Screening 1971 FIT - COLON CA SCREENING 1971 FLEX SIG - COLON CA SCREENING 1971 LIPID TESTING 1971 MAMMOGRAM 1971 HIV SCREENING 1986 HEPATITIS C SCREENING 05/25/1989 DTAP/TDAP/TD VACCINES (1 - Tdap) 1990 HEPATITIS B VACCINE (1 of 3 - 19+ 3-dose series) 1990 SCREENING FOR DIABETES 08/06/2019 PNEUMOCOCCAL VACCINE 50+ (1 of 1 - PCV) 2021 ZOSTER VACCINE (1 of 2) 2021 COVID-19 VACCINE (1 - 2023-2 5 season) 2024 DEPRESSION SCREENING 06/24/2024 INFLUENZA VACCINE (Season Ended) 2025 HIB VACCINE Aged Out No longer eligi ble based on patient's age to complete this topic HPV VACCINE Aged Out No longer eligi ble based on patient's age to complete this topic MENINGOCOCCAL (Group B) VACC INE SHARED DECISION-MAKING Aged Out No longer eligibl e based on patient's age to complete this topic MENINGOCOCCAL GROUPS A/C/Y/W VACCINE Aged Out No longer eligible b ased on patient's age to complete this topic Insurance [employer] [facility]
--- OUTSIDE RECORDS SUMMARY | 2024-12-28 00:25 | XMS_ITS | Clinical Summary ---
Author Organization [facility] Address [address] [place] [address] Phone Care Team Providers Care Site Reliability Engineer Name Role Phone Gagan Reddy MD Primary Care Provider [phone] Allergies Active Allergy Reactions Criticality Noted Date Comments Niacin Hypotension High 12/23/2019 Prochlorperazine Edisylate Other (See Comments) High 12/23/2019 IV is allergic-wants to fight, becomes aggressive, okay with oral pills Medications omeprazole (PriLOSEC) 40 mg Capsule, Delayed Release(E.C.) Take 40 mg by mouth 1 time daily as needed for Other (See Comment) (acid reflux). Active irbesartan (AVAPRO) 150 mg tablet Take 150 mg by mouth daily at bedtime. Active fenofibrate nanocrystallized (TRICOR) 48 mg tablet Take 48 mg by mouth daily. Active metFORMIN (GLUCOPHAGE) 500 mg tablet Take 500 mg by mouth 4 times daily. Breakfast, lunch, supper, and bedtime Active diphenhydrAMINE (BENADRYL) 50 mg capsule Take 50 mg by mouth nightly as needed for Other (See Comment) (to help sleep). Active cyclobenzaprine (FLEXERIL) 10 mg tablet Take 10 mg by mouth 3 times daily as needed for Spasm or Other (See Comment) (back spasm and hip pain). Active cetirizine (ZyrTEC) 10 mg tablet Take 10 mg by mouth daily. Active HYDROcodone-acetamin ophen (HYCET) 7.5-325 mg/15 mL SolutionIndications: Class 3 severe obesity with body mass index (BMI) of 40.0 to 44.9 in adult, unspecified obesity type, unspecified whether serious comorbidity present Take 15 mL by mouth every 6 hours as needed for Pain. Max Daily Amount: 60 mL 280 mL 02/02/2020 1:45 PM CDT 0 Active ondansetron (Zofran) 4 mg Tablet Take 1 Tablet (4 mg) by mouth every 8 hours as needed for Nausea or Nausea/Emes is. 50 Tablet 02/02/2020 1:45 PM CDT 0 Active famotidine (PEPCID) 20 mg tablet Take 1 Tablet (20 mg) by mouth 2 times daily. 60 Tablet 2 02/02/2020 1:45 PM CDT 0 Active Active Problems Problem Noted Date Diagnosed Date Severe obesity (BMI 35.0-39.9) with comorbidity 02/01/2020 S/P laparoscopic sleeve gastrectomy 02/01/2020 Postoperative pain 02/01/2020 Uncontrolled type 2 diabetes mellitus with hyper glycemia 02/01/2020 Dyslipidemia 02/01/2020 Essential hypertension 02/01/2020 Gastroesophageal reflux disease without esophagi tis 02/01/2020 Hiatal hernia 02/01/2020 Depression with anxiety 02/01/2020 Encounters Date Type Department Care Team Description 12/09/2024 External Device Data [facility]STRACTION Provider, Abstract 12/08/2024 External Device Data [facility] Provider, Abstract 11/12/2024 External Device Data [facility] Provider, Abstract 11/11/2024 External Device Data [facility] Provider, Abstract 11/10/2024 External Device Data [facility] Provider, Abstract from Last 3 Months Social History Tobacco Use Types Packs/Day Years Used Date Smoking Tobacco: Former Cigarettes 1.5 29 1 - 03/2018 Smokeless Tobacco: Never Alcohol Use Standard Drinks/Week Comments Yes 0 (1 standard drink = 0.6 oz pur e alcohol) Comments No Sex and Gender Information Value Date Recorded Sex Assigned at Not on file Legal Sex Female 8:04 AM CDT Gender Identity Not on file Sexual Orientation Not on file Last Filed Vital Signs Vital Sign Reading Time Taken Comments Blood Pressure 130/64 02/02/2020 11:37 AM CDT Pulse 91 02/02/2020 11:37 AM CDT Temperature 36.7 C (98.1 F) 02/02/2020 11:37 AM CDT Respiratory Rate 16 02/02/2020 11:37 AM CDT Oxygen Saturation 95% 02/02/2020 11:37 AM CDT Inhaled Oxygen Concentration - - Weight 100.2 kg (221 lb) 02/02/2020 1:34 PM CDT Height 162.6 cm (5' 4) 02/02/2020 1:34 PM CDT Body Mass Index 37.93 02/02/2020 1:34 PM CDT Plan of Treatment Health Maintenance Due Date Last Done Comments DIABETES ANNUAL FOOT EXAM 1989 DIABETES ANNUAL RETINAL EXAM 1989 DIABETES MICROALBUMIN ANNUAL SCREEN 1989 LDL CHOLESTEROL ANNUAL 1989 DTAP/TDAP/TD VACCINES (1 - Tdap) 1990 HEPATITIS B VACCINES (1 of 3 - 19+ 3-dose series) 12/1989 HPV/Cotest (21-29) 1992 CERVICAL CANCER SCREENING 2001 HPV/Cotest (30-65) 2001 PAP SMEAR 2001 BREAST CANCER SCREENING 2011 COLORECTAL SCREENING 2016 Colorectal Cancer Screening 2016 FIT-DNA Q 3 years 2016 FIT/FOBT Q 1 year 2016 Flex Sig/CT Colonography Q 5 years 2016 DIABETES HBA1C Q 6 MONTHS 07/29/2020 01/27/2020 ZOSTER VACCINE (1 of 2) 2021 INFLUENZA VACCINE (#1) 2025 Medical Devices Implanted Type Area Learning And Development Analyst Device Identifier Shelf Expiration Date Model / Serial / Lot Seamguard Endogia 60 Blk [id number] - [id number] Implanted:Qty : 2 on 02/01/2020 by Soo Bowles MD at [facility] N/A: Abdomen [employer] 07/22/2022 [id number] / / [id number] Seamguard Endogia 60 Prpl [id number] - [id number] Implanted:Qty : 3 on 02/01/2020 by Soo Bowles MD at [facility] N/A: Abdomen [employer] 07/26/2022 [id number] / / [id number] First Aid Trainer Endoclip Iii 5mm W/Cliplogic [id number] - Sn/A Implanted:Qty : 1 on 02/01/2020 by Soo Bowles MD at [facility] Clip N/A: Abdomen [employer] 08/21/2022 [id number] / N/A / [id number] Procedures Procedure Name Priority Date/Time Associated Diagnosis Comments HEMOGLOBIN A1C Routine 01/27/2020 10:33 AM CDT from Last 3 Months or Most Recently Relevant to Health Maintenance Results * (ABNORMAL) HEMOGLOBIN A1C (01/27/2020 10:33 AM CDT) HEMOGLOBIN A1C 8.2(H) <=5.6 % 01/27/2020 11:36 AM CDT [facility] EST. AVG GLUCOSE, A1C 189 mg/dL 01/27/2020 11:36 AM CDT [facility] Blood Venipuncture / Unknown 01/27/2020 10:33 AM CDT 01/27/2020 11:11 AM CDT Narrative [facility] - 01/27/2020 11:36 AM CDT HGB A1C INTERPRETATION NORMAL: <5.7% PRE-DIABETES: 5.7 - 6.4% DIABETES: 6.5% OR GREATER Soo Bowles MD CHEMISTRY ORDERABLES Final Result [facility] CLIA# [id number] [place] [address] from Last 3 Months or Most Recently Relevant to Health Maintenance [place] [address] [address] [id number] [employer] (INTERNAL) [facility] Internal Plans Advance Directives For more information, please contact: [phone] * Full Code (Latest Code Status on File) Date Activated Date Inactivated Comments 02/01/2020 4:43 PM 02/02/2020 5:51 PM * Full Code Date Activated Date Inactivated Comments 02/01/2020 1:45 PM 02/01/2020 4:43 PM Care Teams Site Reliability Engineer Relationship Specialty Start Date End Date Gagan Reddy MD [address] [place] [address] PCP - General Family Practice 01/25/20
--- OUTSIDE RECORDS SUMMARY | 2024-12-28 00:25 | XMS_ITS ---
Author Organization [facility] Address [address] [facility] [address] [place] [address] Care Team Providers Care Corporate Lawyer Name Role Phone Paul Garcia MD Primary Care Provider Lucita Ty Unavailable [phone] REASON FOR VISIT Refill Medications Medication SIG (Take, Route, Frequency, Duration) Notes Start Date End Date Status Methylphenidate HCl ER (OSM) 27 MG 1 tablet in the morning Orally Once a day; Duration: 30 days 12/23/2024 01/22/2025 Active Social History Sex Assigned At : Social History Observation Description Sex Assigned At Female Encounters Encounter Location Date Provider Diagnosis [facility] [address] [facility] [address] [place] [address] 12/23/2024 Lucita Mcgraw Attention-deficit hyperactivity disorder, combined type F90.2 Assessments Encounter Date Diagnosis (ICD Code) Assessment Notes Treatment Notes Treatment Clinical Notes Section Notes 12/23/2024 Attention-deficit hyperactivity disorder, combined type (ICD-10 - F90.2) Plan Of Treatment Medication Medication Name Sig Start Date Stop Date Notes Methylphenidate HCl ER (OSM) 27 MG 1 tablet in the morning Orally Once a day; Duration: 30 days 12/23/2024 01/22/2025 Next Appt Details Provider Name:Lucita lance, 01/04/2025 03:30:00 PM, [address], [address], [place], [address], Progress Notes * ANNE HASTINGS MDOB:1969 (54 yo F)Acc No.[id number]:12/23/2024 Patient: ANNE DAVIDSON :1970 A ge:54 Y S ex:Female [address] [place], [address] * Refills Refill Methylphenidate HCl ER (OSM) Tablet Extended Release, 27 MG, Orally, 30 Tablet, 1 tablet in the morning, Once a day, 30 days, Refills=0 Subjective: * Chief Complaints: * R efill * Medical History: * Surgical History: * Hospitalization/Major Diagno stic Procedure: * Medications: Objective: * Vitals: * Physical Examination: Assessment: * Assessment: 1. A ttention-deficit hyperactivity disorder, combined type - F90.2 Plan: * Treatment: * Procedure Codes: E RX CONTROLLED SUBSTANCE ERX * * Date:
[2024-12-28 08:36] VITALS: BP 100/63; PULSE 60; RESP 18; TEMP 36.3; O2SAT 98; BMI 31.4
[2024-12-28] MEDS: LACTATED RINGERS 1,000 ML 150 ML IV CONT (08:47)
--- NOTE | 2024-12-28 08:49 | P.PNAN_ITS ---
Anes - Initial Pre Proc Eval Procedure: Operation Date: 12/28/24 10:00 Proposed Procedures p Screening Colonoscopy - Ti Faustin MD Date/Time: 12/28/24 08:49 Surgeon: Ti Faustin MD Pre Op Diagnosis: screening Patient Data Age: 54 Gender: F Height: 1.6 m Weight: 80.3 kg Last Vital Signs Temp 97.4 F L 12/28/24 08:36 Pulse 60 12/28/24 08:36 Resp 18 12/28/24 08:36 BP 100/63 12/28/24 08:36 Pulse Ox 98 12/28/24 08:36 O2 Del Method Room Air 12/28/24 08:36 Allergies Allergy/AdvReac Type Severity Reaction Status Date / Time niacin Allergy Severe Hypotension Verified 12/28/24 08:36 prochlorperazine (From Allergy Mild Agitated Verified 12/28/24 08:36 Compazine) Home Medications ?Medication ?Instructions ?Recorded ?Confirmed ?Type metformin 500 mg tablet 500 mg PO QID 05/04/19 12/07/24 History cyclobenzaprine 10 mg tablet 10 mg PO QPM 06/05/19 12/07/24 History irbesartan 150 mg tablet 150 mg PO DAILY 06/05/19 12/07/24 History omeprazole 40 mg capsule,delayed 40 mg PO DAILY #30 caps 01/14/20 12/07/24 Rx release aripiprazole 5 mg tablet 5 mg PO DAILY 12/07/24 12/07/24 History cholecalciferol (vitamin D3) 125 5,000 unit PO DAILY 12/07/24 12/07/24 History mcg (5,000 unit) tablet (Vitamin D3) hydroxyzine HCl 25 mg tablet 12.5 mg PO TID PRN anxiety 12/07/24 12/07/24 History omega 4-frl-dtt-fish oil 1,000 mg 1 cap PO DAILY 12/07/24 12/07/24 History (120 mg-180 mg) capsule (Fish Oil) triamterene 37.5 1 tablet PO DAILY 12/07/24 12/07/24 History mg-hydrochlorothiazide 25 mg tablet Patient hx anesthesia problems: none Family hx anesthesia problems: none Results Review: All pre-operative results and documents have been reviewed as part of the pre- operative evaluation. [facility] Past Medical History Medical History Colon cancer screening Dysphagia GERD (gastroesophageal reflux disease) Hyperlipidemia Hypertension Obesity, morbid, BMI 40.0-49.9 Social History Social History Smoking packs per day: 1 Smoking cigarettes per day: 20.0 Years smoked: 20 Smoking pack-years: 20.00 Smoking status: Former smoker Tobacco type: cigarettes Alcohol intake: never Substance use: never Substance use type: does not use Living arrangements: with family Spiritual care concerns: No Anes - Eval Final PreProcedure Day of Procedure 12/28/24 08:49 Patient weight: obese Heart: regular rate and rhythm Lungs: clear to auscultation Airway: Mallampati scale class II Neurological: alert and oriented Last oral intake: >/= 8 hours ASA classification: III Emergent: no Anesthetic plan: proceed Anesthesia type and monitoring: general GIVS and standard monitoring Results Review: All pre-operative results and documents have been reviewed as part of the pre- operative evaluation. Informed Consent: The patient's anesthetic plan and its attendant risks and benefits were discussed with the patient/family/POA. Questions were solicited and answers provided to the satisfaction of the patient/family/POA.
--- NOTE | 2024-12-28 09:27 | PM.IMHP ---
H&P: HPI History of Present Illness Date/Time: 12/28/24 09:27 Chief Complaint: History of colon polyps Narrative: The patient has a history of colonic polyps, the last colonoscopy was in 2019, finding a sessile serrated adenoma in the cecum. Review of Systems Review of Systems: All systems reviewed & are unremarkable except as noted in HPI and below PMFSH Past Medical History Medical History Colon cancer screening Dysphagia GERD (gastroesophageal reflux disease) Hyperlipidemia Hypertension Obesity, morbid, BMI 40.0-49.9 Social History Social History Smoking packs per day: 1 Smoking cigarettes per day: 20.0 Years smoked: 20 Smoking pack-years: 20.00 Smoking status: Former smoker Tobacco type: cigarettes Alcohol intake: never Substance use: never Substance use type: does not use Living arrangements: with family Spiritual care concerns: No Meds Home Medications and Allergies Home Medications ?Medication ?Instructions ?Recorded ?Confirmed ?Type metformin 500 mg tablet 500 mg PO QID 05/04/19 12/07/24 History cyclobenzaprine 10 mg tablet 10 mg PO QPM 06/05/19 12/07/24 History irbesartan 150 mg tablet 150 mg PO DAILY 06/05/19 12/07/24 History omeprazole 40 mg capsule,delayed 40 mg PO DAILY #30 caps 01/14/20 12/07/24 Rx release aripiprazole 5 mg tablet 5 mg PO DAILY 12/07/24 12/07/24 History cholecalciferol (vitamin D3) 125 5,000 unit PO DAILY 12/07/24 12/07/24 History mcg (5,000 unit) tablet (Vitamin D3) hydroxyzine HCl 25 mg tablet 12.5 mg PO TID PRN anxiety 12/07/24 12/07/24 History omega 7-srd-yek-fish oil 1,000 mg 1 cap PO DAILY 12/07/24 12/07/24 History (120 mg-180 mg) capsule (Fish Oil) triamterene 37.5 1 tablet PO DAILY 12/07/24 12/07/24 History mg-hydrochlorothiazide 25 mg tablet Allergies Allergy/AdvReac Type Severity Reaction Status Date / Time niacin Allergy Severe Hypotension Verified 12/28/24 08:36 prochlorperazine (From Allergy Mild Agitated Verified 12/28/24 08:36 Compazine) Vital Signs Vital Signs - 24 hr 12/28/24 08:36 Temperature 97.4 F L Pulse Rate 60 Respiratory Rate 18 Blood Pressure 100/63 Pulse Oximetry 98 Oxygen Delivery Room Air Exam Const: General: cooperative and healthy appearing Resp: Effort & Inspection: normal respiratory effort and able to speak in complete sentences Auscultation: clear to auscultation bilaterally Cardio: Rate: regular rate Rhythm: regular rhythm GI: Inspection: normal to inspection GI Palp: No No hepatosplenomegaly present Auscultation: normal bowel sounds Rectal Exam: deferred Skin: General skin exam: normal color Psych: Appearance: grossly normal Mental Status: mental status grossly normal Assessment and Plan Assessment and plan (1) Colon cancer screening: Code(s): Z12.11 - Encounter for screening for malignant neoplasm of colon Status: Acute Assessment and Plan: The patient is deemed a good candidate for the procedure. Consent signed. Will proceed.
[2024-12-28 09:49] VITALS: BP 85/45; PULSE 69; RESP 19; O2SAT 98
[2024-12-28 09:59] VITALS: BP 88/46; PULSE 73; RESP 23; O2SAT 99
[2024-12-28 10:09] VITALS: BP 95/55; PULSE 73; RESP 23; O2SAT 99
[2024-12-28 10:18] VITALS: BP 105/59
== END 2024-12-28 10:23 | disposition home or self-care (01) ==
PROVIDERS: PCP Family Medicine; Referring Provider Family Medicine; Visit Provider Internal Medicine Gastroenterology
PROC: 0DJD8ZZ Inspection of Lower Intestinal Tract, Via Natural or Artificial Opening Endoscopic (ICD-10-PCS; CPT 45378; principal; 2024-12-28 10:00)
DX: Z12.11 Encounter for screening for malignant neoplasm of colon (principal); K21.9 Gastro-esophageal reflux disease without esophagitis; E78.5 Hyperlipidemia, unspecified; I10 Essential (primary) hypertension; E66.9 Obesity, unspecified; Z68.31 Body mass index [BMI] 31.0-31.9, adult; Z79.84 Long term (current) use of oral hypoglycemic drugs; Z87.891 Personal history of nicotine dependence; Z86.0100 Personal history of colon polyps, unspecified
CPT/HCPCS: 45378; 82948; J2003; J2704; J7120

== ENCOUNTER 2025-04-25 10:46 | Outpatient (CLI) | payer OTHER, SELFPAY ==
--- OUTSIDE RECORDS SUMMARY | 2024-10-12 08:15 | XMS_ITS ---
Author Organization [facility] [employer] Address [address] [place] [address] Care Team Providers Care Excellence Manager Name Role Phone Paul Garcia MD Primary Care Provider Lucita Ty Unavailable [phone] Allergies Allergen (clinical drug ingredient) Drug/Non Drug Allergy documented on EMR Reaction Allergy Type Onset Date Status niacin Niacin Unknown Drug Allergy 11/07/2023 Active REASON FOR VISIT had to leave for work Medications Medication SIG (Take, Route, Frequency, Duration) Notes Start Date End Date Status ARIPiprazole 5 MG Tablet 1 tablet Oral O nce a day Active hydrOXYzine HCl 25 MG Tablet take 1/2 to 1 tab three times a day as needed Oral; Duration: 30 days Active Atomoxetine HCl 80 MG Capsule 1 capsule in the morning Orally Once a day; Duration: 30 days 09/14/2024 11/13/2024 Active Metaxalone 800 MG Tablet Oral 11/07/2023 Active Atomoxetine HCl 60 MG Capsule 1 capsule in the morning Orally Once a day; Duration: 30 days Active Ondansetron 4 MG Tablet Disintegrating Oral 11/07/2023 Active Triamterene-HCTZ 37.5-25 MG Tablet Oral 11/07/2023 Active ARIPiprazole 5 MG Tablet TAKE 1 TABLET B Y MOUTH DAILY; Duration: 30 Active Meclizine HCl 25 MG Tablet Oral 11/07/2023 Active Social History Tobacco Use: Social History Observation Description Date Details (start date - stop date) Former Smoker NA - NA Sex Assigned At : Social History Observation Description Sex Assigned At Female Social History Drug/Alcohol: Social Info Question Answer Notes Drugs Have you used drugs other than those for medical reasons in the past 12 months? Yes Marijuana? Yes Tobacco Use: Social Info Question Answer Notes Tobacco Control (Standard) How long has it been since you last smoked? 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 THC gummies Do you drink alcohol? rarely Vital Signs Blood pressure systolic 100 mm Hg 10/13/19 25 Blood pressure diastolic 69 mm Hg 025 Heart Rate 109 /min 10/12/2024 Height 63.00 in 10/12/2024 Weight 185 lbs 10/12/2024 BMI 32.77 kg/m2 10/12/2024 Height-cm 160.02 cm 10/12/2024 Weight-kg 83.92 kg 10/12/2024 Encounters Encounter Location Date Provider Diagnosis [facility] [address] [place] [address] 10/12/2024 Lucita Mcgraw Encounter for screening for depression Z13.31 and Encounter for screening for cardiovascular disorders Z13.6 Assessments Encounter Date Diagnosis (ICD Code) Assessment Notes Treatment Notes Treatment Clinical Notes Section Notes 10/12/2024 Encounter for screening for depression (ICD-10 - Z13.31) 10/12/2024 Encounter for screening for cardiovascular disorders (ICD-10 - Z13.6) Plan Of Treatment Next Appt Details Provider Name:Lucita lance, 05/19/2025 08:15:00 AM, [address], [address], [place], [address], History and Physical Notes * HPI (History of Present Illness) Category Sub-Category Detail Notes Category Not es Depression screening PHQ-9 Little inte rest or pleasure in doing things: Not at all Feeling down, depressed, or hopeless: No t at all Trouble falling or staying asleep, or sl eeping too much: Not at all Feeling tired or having little energy: N ot at all Poor appetite or overeating: Not at all Feeling bad about yourself o r that you are a failure, or have let yourself or your family down: Not at all Trouble concentrating on thi ngs, such as reading the newspaper or watching television: Not at all Moving or speaking so slowly that other people could have noticed; or the opposite, being so fidgety or restless that you have been moving around a lot more than usual: Not at all Thoughts that you would be b ashley off or of hurting yourself in some way: Not at all Total Score: 0 Intervention Depression Screening Findings: N egative Suicide Risk Assessment Performed: 10/12 Depression Screening JOSE-7 (2018 Edition) Monica g nervous, anxious, or on edge: More than half the days Not being able to stop or control worryi ng: More than half the days [place]-Suicide Severity Rating Scale Suicide Risk (CSRS-screener) in the past one month Have you wished you were or wished you could go to sleep and not wake up?: No in the past one month Have y ou actually had any thoughts of killing yourself?: No Progress Notes * ANNE HASTINGS MDOB:1969 (54 yo F)Acc No.[id number]:10/12/2024 Patient: ANNE DAVIDSON Provider: Tian Mcgraw :1970 A ge:54 Y S ex:Female Date:10/12/2024 Address:[address] [facility] Pcp:Paul Garcia MD Subjective: * Chief Complaints: * H ad to leave for work * HPI: D epression Screening: JOSE-7 (2018 Edition) F eeling nervous, anxious, or on edge M ore than half the days N ot being able to stop or control worrying?More than half the days [place]-Suicide Severity Rating Scale: Suicide Risk (CSRS-screener) i n the past one month Have you wished you were or wished you could go to sleep and not wake up? N o i n the past one month Have you actually had any thoughts of killing yourself? N o D epression screening: PHQ-9 L ittle interest or pleasure in doing things?Not at all F eeling down, depressed, or hopeless N ot at all T rouble falling or staying asleep, or sleeping too much N ot at all F eeling tired or having little energy N ot at all P oor appetite or overeating N ot at all F eeling bad about yourself or that you are a failure, or have let yourself or your family down N ot at all T rouble concentrating on things, such as reading the newspaper or watching television N ot at all M oving or speaking so slowly that other people could have noticed; or the opposite, being so fidgety or restless that you have been moving around a lot more than usual N ot at all T houghts that you would be better off or of hurting yourself in some way N ot at all T otal Score 0 Intervention D epression Screening Findings N egative S uicide Risk Assessment Performed 0 10/12/2024 H istory of Presenting Problem: Depression screening negativeBP normal. * ROS: P erformance Met: N ormal blood pressure reading documented, follow-up not required ( G8783). * Medical History: Problems: Attention deficit hyperactivity disorder, combined type Chronic post-traumatic stress disorder Generalized anxiety disorder Moderate recurrent major depression Obesity Panic attack , * Social History: T obacco Use: T obacco Control (Standard) H ow long has it been since you last smoked??Greater than 10 years T obacco use: F ormer smoker D rug/Alcohol: D rugs H ave you used drugs other than those for medical reasons in the past 12 months? Y es M arijuana? Y es Do you smoke marijuana?: THC gummies. Do you drink alcohol?: rarely. 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 * Medications: T akingARIPiprazole 5 MG Tablet TAKE 1 TABLET BY MOUTH DAILY Ondansetron 4 MG Tablet Disintegrating Oral Triamterene-HCTZ 37.5-25 MG Tablet Oral Meclizine HCl 25 MG Tablet Oral Metaxalone 800 MG Tablet Oral Atomoxetine HCl 60 MG Capsule 1 capsule in the morning Orally Once a day hydrOXYzine HCl 25 MG Tablet take 1/2 to 1 tab three times a day as needed Oral Atomoxetine HCl 80 MG Capsule 1 capsule in the morning Orally Once a day , stop date 05/23/2025ARIPiprazole 5 MG Tablet 1 tablet Oral Once a day Medication List reviewed and reconciled with the patientTaking ARIPiprazole 5 MG Tablet TAKE 1 TABLET BY MOUTH DAILY Taking Ondansetron 4 MG Tablet Disintegrating Oral Taking Triamterene-HCTZ 37.5-25 MG Tablet Oral Taking Meclizine HCl 25 MG Tablet Oral Taking Metaxalone 800 MG Tablet Oral Taking Atomoxetine HCl 60 MG Capsule 1 capsule in the morning Orally Once a day Taking hydrOXYzine HCl 25 MG Tablet take 1/2 to 1 tab three times a day as needed Oral Taking Atomoxetine HCl 80 MG Capsule 1 capsule in the morning Orally Once a day , stop date 11/13/2024Taking ARIPiprazole 5 MG Tablet 1 tablet Oral Once a day Medication List reviewed and reconciled with the patient * Allergies: N iacin: Allergy - Onset Date 11/07/2023yesAllergies Verified. Objective: * Vitals: B P:100/69mm Hg, HR:109/min, Wt:185lbs, Wt-k.92 kg, Ht: 63.00 in, Ht-cm: 160.02 cm, BMI:32.77Index, Body Surface Area: 1.93. Assessment: * Assessment: 1. E ncounter for screening for depression - Z13.31 2 . E ncounter for screening for cardiovascular disorders - Z13.6 Plan: * Procedure Codes: 1 036F TOBACCO [id number] NORMAL BP READING DOC F/U NOT [id number] BEHAV ASSMT W/SCORE & DOCD/STAND [id number] NEG SCR D PT NOT ELIG F/U/PLN [id number] MOST RECENT SYSTOLIC BP < 140MM [id number] MOST RECENT DIASTOLIC BP < 90MM HG Billing Information: * Procedure Codes: 1036F TOBACCO NON-USER. G8783 NORMAL BP READING DOC F/U NOT RQR. 12262 BEHAV ASSMT W/SCORE & DOCD/STAND INSTRUMENT. G8510 NEG SCR D PT NOT ELIG F/U/PLN DOC. G8752 MOST RECENT SYSTOLIC BP < 140MM HG. G8754 MOST RECENT DIASTOLIC BP < 90MM HG. * Electronic signature of Everett Mcgraw on 04/25/2025 at 10:50 AM SUPERVISOR PRESSING DEPARTMENT Sign off status: Pending * Provider: Tian Mcgraw Date: 0 10/12/2024 Generated for Marcy beltran/Rubens/Edie on: 1 06/25/2024 10:50 AM SUPERVISOR [employer]ING [employer]PARTMENT
--- NOTE | ~2025-04-25 | MR_ITS ---
EXAMINATION: MR hip LT wo con DATE: 04/25/2025 11:55 INDICATION: Left hip labral tear TECHNIQUE: Magnetic resonance imaging (MRI) of the left hip was performed without intravenous contrast. Sequences included full-field axial PD-weighted FS FSE and T1-weighted FSE, coronal of the pelvis with PD-weighted FS FSE, T2- weighted FSE and T1-weighted FSE, small field of view of the left hip with axial PD-weighted FS FSE, sagittal PD-weighted FS FSE, coronal PD-weighted FS FSE and coronal T2 weighted FSE. Additional radial T1-weighted FGR oriented orthogonal to the acetabular rim were obtained for evaluation of the labrum. COMPARISON: None FINDINGS: Bones/labrum/cartilage: Alignment is normal. No fracture, avascular necrosis or pathologic marrow replacing process. Moderate lumbar spondylosis. Mild osteoarthritis with mild nonuniform partial-thickness cartilage loss with smooth chondral surface and without degenerative subchondral changes at the left hip. Degenerative tearing of the small anterosuperior left acetabular labrum. Fluid: Symmetric physiologic amount of fluid within both hip joints. Small amount of fluid at the bilateral trochanteric bursa consistent with mild to moderate trochanteric bursitis. Additional increased fluid signal consistent with mild bilateral gluteus medias and minimus bursitis. Soft tissues: Mild right-sided and moderate left-sided gluteus minimus tendinopathy without discrete tear. Additional moderate tendinopathy at the bilateral gluteus medius medius tendons with likely chronic mild partial-thickness tears of the anterior portion of the tendons characterized by proximal retraction of the anterior portion myotendinous junctions and associated mild fatty atrophy of portions of the anterior muscle bellies. Otherwise normal and symmetric muscle bulk and signal in the pelvis and visualized proximal thighs. Mild tendinopathy without discrete tear at the ischial tuberosity origins of the bilateral hamstring tendons. The bilateral iliopsoas tendons and the rectus femoris tendons are normal. 1 cm nabothian cyst at the cervix. Limited evaluation of visceral organs of the pelvis is unremarkable. Mild ventral diastases with moderate-sized fat- containing umbilical hernia. Nonspecific 1 cm centrally intermediate attenuation, peripherally low-attenuation subcutaneous nodule posterolateral to the subtrochanteric proximal left femur. No pathologically enlarged pelvic/inguinal lymphadenopathy. IMPRESSION: 1. Mild left hip osteoarthritis with degeneration of the anterosuperior left acetabular labrum. 2. Moderate bilateral trochanteric bursitis with mild bursitis at the bilateral gluteus medius and minimus bursae. 3. Mild to moderate tendinopathy of the bilateral gluteus medius and minimus tendons with likely chronic partial tears of the anterior portion of the bilateral gluteus medius tendons. 4. Mild tendinopathy without discrete tear at the ischial tuberosity origin of the bilateral proximal hamstring tendons. 5. Prominent 9 mm subcutaneous nodule posterolateral to the subtrochanteric proximal left femur with peripheral low signal intensity rim which suggests possible peripheral corticated heterotopic ossicle related to old trauma or fat necrosis. Malignancy would be highly unusual dislocation and with consider radiographs of the left hip to assess for peripheral cortication. 6. Mild lower abdominal ventral diastases with moderate-sized fat-containing umbilical hernia. Reviewed, dictated and finalized at location A. H CORRECTIONS OFFICER IMPRESSION: 1. Mild left hip osteoarthritis with degeneration of the anterosuperior left ac etabular labrum. 2. Moderate bilateral trochanteric bursitis with mild bursitis at the bilateral gluteus medius and minimus bursae. 3. Mild to moderate tendinopathy of the bilateral gluteus medius and minimus te ndons with likely chronic partial tears of the anterior portion of the bilatera l gluteus medius tendons. 4. Mild tendinopathy without discrete tear at the ischial tuberosity origin of the bilateral proximal hamstring tendons. 5. Prominent 9 mm subcutaneous nodule posterolateral to the subtrochanteric pro ximal left femur with peripheral low signal intensity rim which suggests possib le peripheral corticated heterotopic ossicle related to old trauma or fat necro sis. Malignancy would be highly unusual dislocation and with consider radiograp hs of the left hip to assess for peripheral cortication. 6. Mild lower abdominal ventral diastases with moderate-sized fat-containing um bilical hernia.
--- NOTE | ~2025-04-25 | XR_ITS ---
Examination: XR skull <4V Clinical History: MRI CLEARENCE RO EAR SHUNT FOREIN BODY Comparison: None Technique: 2 views skull Findings/impression: 1. Small opacity of both mastoids on lateral projection. Possibly calcification or bone island but plastic object not excluded. Not identified on frontal projection. 2. No metallic foreign body identified. 3. Can consider CT for more definitive characterization, if required. Reviewed, dictated and finalized at location R. LLER OPERATOR
--- OUTSIDE RECORDS SUMMARY | 2025-04-25 10:50 | XMS_ITS | Patient Health Record ---
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 Name Role Phone Paul Garcia MD Primary Care Provider Lucita Ty Unavailable [phone] Bartolome Ferguson Unavailable [phone] Allergies Allergen (clinical drug ingredient) Drug/Non Drug Allergy documented on EMR Reaction Allergy Type Onset Date Status niacin Niacin Unknown Drug Allergy 11/07/2023 Active Results Component Value Reference Range Notes UDT Reviewed date:01/04/2025 06:11:19 PM Interpretation: Performing Lab: Notes/Report: Amphetamine (AMP) n 0 - 1000 ng/ml Buprenorphine (BUP) n 0 - 10 ng/ml Oxazepam (BZO) n 0 - 300 ng/ml Cocaine (ROSSY) n 0 - 300 ng/ml Methamphetamine (mAMP) n 0 - 300 ng/ml Methylenedioxymethamphetamine (MDMA) n 0 - 500 ng/ml Morphine (MOP) n 0 - 25 ng/ml Methadone (MTD) n 0 - 300 ng/ml Oxycodone (OXY) n 0 - 300 ng/ml THC n 0 - 50 ng/ml x n 0 - 1000 ng/ml x n 0 - 1000 ng/ml x n 0 - 300 ng/ml x n 0 - 300 ng/ml x n 0 - 300 ng/ml Reason For Referral No Information Medications Medication SIG (Take, Route, Frequency, Duration) Notes Start Date End Date Status Triamterene-HCTZ 37.5-25 MG Tablet Oral 11/07/2023 Active Ondansetron 4 MG Tablet Disintegrating Oral 11/07/2023 Active Methylphenidate HCl ER (OSM) 27 MG Tablet Extended Release 1 tablet in the morning Orally Once a day; Duration: 30 days 04/02/2025 Active Metaxalone 800 MG Tablet Oral 11/07/2023 Active Meclizine HCl 25 MG Tablet Oral 11/07/2023 Active fluvoxaMINE Maleate 100 MG Tablet 1 tablet at bedtime Orally Once a day; Duration: 90 days 02/16/2025 Active hydrOXYzine HCl 25 MG Tablet take 1/2 to 1 tab three times a day as needed Oral; Duration: 30 days 03/22/2025 Active ARIPiprazole 2 MG Tablet 1 tablet Orally Once a day; Duration: 90 days 03/22/2025 Active Propranolol HCl 10 MG Tablet 1 tablet Orally twice a day; Duration: 30 days As needed 03/22/2025 Active Social History Tobacco Use: Social History [...] Options Details Miscellaneous: 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 Section Notes: Social History Substance Use Do [...] currently employed?: Yes Who is your employer?: [employer] Marriage and Sexuality What is your relationship status?: Are you sexually active?: Yes Do you use protection during sex?: No How many children do you have?: 3 Home and Environment Are there any guns present in your home?: No Advance Directive Do you have an advance directive?: No Do you have a medical power of workers compensation attorney?: No Gender Identity and LGBTQ Identity Assigned sex at : Female First name used: [facility] Social History Substance Use Do you or [...] currently employed?: Yes Who is your employer?: [employer] Marriage and Sexuality What is your relationship status?: Are you sexually active?: Yes Do you use protection during sex?: No How many children do you have?: 3 Home and Environment Are there any guns present in your home?: No Advance Directive Do you have an advance directive?: No Do you have a medical power of workers compensation attorney?: No Gender Identity and LGBTQ Identity Assigned sex at : Female First name used: [facility] Social History Substance Use Do you or [...] currently employed?: Yes Who is your employer?: [employer] Marriage and Sexuality What is your relationship status?: Are you sexually active?: Yes Do you use protection during sex?: No How many children do you have?: 3 Home and Environment Are there any guns present in your home?: No Advance Directive Do you have an advance directive?: No Do you have a medical power of workers compensation attorney?: No Public Health and Travel Have you been to an area known to be high risk for COVID-19?: No Gender Identity and LGBTQ Identity Assigned sex at : Female First name used: [facility] Social History Substance Use Do you or [...] currently employed?: Yes Who is your employer?: [employer] Marriage and Sexuality What is your relationship status?: Are you sexually active?: Yes Do you use protection during sex?: No How many children do you have?: 3 Home and Environment Are there any guns present in your home?: No Advance Directive Do you have an advance directive?: No Do you have a medical power of workers compensation attorney?: No Gender Identity and LGBTQ Identity Assigned sex at : Female First name used: [facility] Social History Substance Use Do you or [...] currently employed?: Yes Who is your employer?: [employer] Marriage and Sexuality What is your relationship status?: Are you sexually active?: Yes Do you use protection during sex?: No How many children do you have?: 3 Home and Environment Are there any guns present in your home?: No Advance Directive Do you have an advance directive?: No Do you have a medical power of workers compensation attorney?: No Gender Identity and LGBTQ Identity Assigned sex at : Female First name used: LISA Problems Problem Type SNOMED Code ICD Code Onset Dates Problem Status W/U Status Risk Notes Problem Mild recurrent major depression (90293533) Major depressive disorder, recurrent, mild (F33.0) Active confirmed Problem Moderate recurrent major depression (77767761) Major depressive disorder, recurrent, moderate (F33.1) 11/07/19 Active confirmed Problem Generalized anxiety disorder (41132742) Generalized anxiety disorder (F41.1) 11/07/19 Active confirmed Problem Posttraumatic stress disorder (95803149) Post-traumatic stress disorder, chronic (F43.12) 11/07/19 Active confirmed Problem Attention deficit hyperactivity disorder, combined type (36579668) Attention-deficit hyperactivity disorder, combined type (F90.2) 11/07/19 Active confirmed Problem Recurrent major depression (60503928) MDD (recurrent major depressive disorder) in remission (F33.40) Active confirmed Problem Panic disorder (603356533) Panic attacks (F41.0) Active confirmed Vital Signs Heart Rate 97 /min 03/22/2025 Height-cm 160.02 cm 03/22/2025 Blood pressure diastolic 76 mm Hg 03/22/2025 Weight-kg 80.74 kg 03/22/2025 Height 63.00 in 03/22/2025 Blood pressure systolic 122 mm Hg 03/22/2025 Weight 178 lbs 03/22/2025 BMI 31.53 kg/m2 03/22/2025 Encounters Encounter Location Date Provider Diagnosis [facility] [employer] [facility] [address] [place] [address] 05/04/2024 Lucita Mcgraw Major depressive disorder, recurrent, moderate F33.1 ; Generalized anxiety disorder F41.1 ; Panic attacks F41.0 ; Attention-deficit hyperactivity disorder, combined type F90.2 and Post-traumatic stress disorder, chronic F43.12 [place] [address] [facility] [address] [place] [address] 09/14/2024 Lucita Mcgraw [place] [address] [address] [facility] [address] [address] 09/14/2024 Lucita Mcgraw Major depressive disorder, recurrent, moderate F33.1 ; Generalized anxiety disorder F41.1 ; Panic attacks F41.0 ; Attention-deficit hyperactivity disorder, combined type F90.2 and Post-traumatic stress disorder, chronic F43.[address] [address] 10/14/2024 Lucita Mcgraw Attention-deficit hyperactivity disorder, combined type F90.2 ; Major depressive disorder, recurrent, mild F33.0 ; Generalized anxiety disorder F41.1 ; Post-traumatic stress disorder, chronic F43.12 ; Panic attacks F41.0 and Encounter for screening for depression Z13.[address] [address] 01/04/2025 Lucita Mcgraw Attention-deficit hyperactivity disorder, combined type F90.2 ; Generalized anxiety disorder F41.1 ; Post-traumatic stress disorder, chronic F43.12 ; Panic attacks F41.0 and MDD (recurrent major depressive disorder) in remission F33.[address] [address] 02/15/2025 Lucita Mcrgaw Generalized anxiety disorder F41.1 ; Attention-deficit hyperactivity disorder, combined type F90.2 ; MDD (recurrent major depressive disorder) in remission F33.40 ; Panic attacks F41.0 and Post-traumatic stress disorder, chronic F43.12 [place] [address] [address] 03/22/2025 Lucita Mcgraw Generalized anxiety disorder F41.1 ; MDD (recurrent major depressive disorder) in remission F33.40 ; Attention-deficit hyperactivity disorder, combined type F90.2 ; Panic attacks F41.0 and Post-traumatic stress disorder, chronic F43.[address] [place] [address] 09/04/2024 Lucita Mcgraw Major depressive disorder, recurrent, moderate F33.1 and Attention-deficit hyperactivity disorder, combined type F90.2 [facility], [facility] [address] [place] [address] 11/20/2024 Lucita Mcgraw Attention-deficit hyperactivity disorder, combined type F90.2 [facility], [facility] [address] [place] [address] 12/23/2024 Lucita Mcgraw Attention-deficit hyperactivity disorder, combined type F90.2 [facility], [facility] [address] [place] [address] 04/02/2025 Lucita Mcgraw Attention-deficit hyperactivity disorder, combined type F90.2 [facility], [facility] [address] [place] [address] 10/14/2024 Lucita Mcgraw Attention-deficit hyperactivity disorder, combined type F90.2 [facility], [facility] [address] [place] [address] 01/23/2025 Lucita Mcgraw [facility], [facility] [address] [place] [address] 01/25/2025 Lucita Mcgraw Attention-deficit hyperactivity disorder, combined type F90.2 [facility], [facility] [address] [place] [address] 01/25/2025 Lucita Mcgraw [facility], [facility] [address] [place] [address] 01/26/2025 Lucita Mcgraw [facility], [facility] [address] [place] [address] 02/05/2025 Lucita Mcgraw [facility], [facility] [address] [place] [address] 02/06/2025 Lucita Mcgraw [facility], [facility] [address] [place] [address] 02/08/2025 Lucita Mcgraw [facility], [facility] [address] [place] [address] 02/16/2025 Lucita Mcgraw Generalized anxiety disorder F41.1 [facility], [facility] [address] [place] [address] 02/16/2025 Lucita Mcgraw [facility], [facility] [address] [place] [address] 03/01/2025 Lucita Mcgraw Assessments Encounter Date Diagnosis (ICD Code) Assessment Notes Treatment Notes Treatment Clinical Notes Section Notes 03/22/2025 MDD (recurrent major depressive disorder) in remission (ICD-10 - F33.40) 02/16/2025 Generalized anxiety disorder (ICD-10 - F41.1) 01/25/2025 Attention-defici t hyperactivity disorder, combined type (ICD-10 - F90.2) 04/02/2025 Attention-defici t hyperactivity disorder, combined type (ICD-10 - F90.2) 11/20/2024 Attention-defici t hyperactivity disorder, combined type (ICD-10 - F90.2) 02/15/2025 Generalized anxiety disorder (ICD-10 - F41.1) 02/15/2025 Attention-defici t hyperactivity disorder, combined type (ICD-10 - F90.2) 01/04/2025 Generalized anxiety disorder (ICD-10 - F41.1) 01/04/2025 Attention-defici t hyperactivity disorder, combined type (ICD-10 - F90.2) 12/23/2024 Attention-defici t hyperactivity disorder, combined type (ICD-10 - F90.2) 10/14/2024 Attention-defici t hyperactivity disorder, combined type (ICD-10 - F90.2) 10/14/2024 Major depressive disorder, recurrent, mild (ICD-10 - F33.0) 10/14/2024 Attention-defici t hyperactivity disorder, combined type (ICD-10 - F90.2) 09/14/2024 Major depressive disorder, recurrent, moderate (ICD-10 [...] - Continue abilify 5 mg daily 09/04/2024 Major depressive disorder, recurrent, moderate (ICD-10 - F33.1) 05/04/2024 Major depressive disorder, recurrent, moderate (ICD-10 [...] notes situational factors may be affecting assessment. 03/22/2025 Generalized anxiety disorder (ICD-10 - F41.1) 05/04/2024 Generalized anxiety disorder (ICD-10 - F41.1) [...] situational factors may be affecting assessment. 09/04/2024 Attention-defici t hyperactivity disorder, combined type (ICD-10 - F90.2) 09/14/2024 Generalized anxiety disorder (ICD-10 - F41.1) [...] - Continue abilify 5 mg daily 10/14/2024 Generalized anxiety disorder (ICD-10 - F41.1) 01/04/2025 Post-traumatic stress disorder, chronic (ICD-10 - F43.12) 02/15/2025 MDD (recurrent major depressive disorder) in remission (ICD-10 - F33.40) 03/22/2025 Attention-defici t hyperactivity disorder, combined type (ICD-10 - F90.2) CancelRx Response got Denied on 2025-04-02 11:33:54 for 'Methylphen idate HCl ER (OSM) 27 MG Tablet Extended Release'Pha rmacy Notes: Unable to Cancel Rx. Please contact Pharmacy 03/22/2025 Panic attacks (ICD-10 - F41.0) 02/15/2025 Panic attacks (ICD-10 - F41.0) 10/14/2024 Post-traumatic stress disorder, chronic (ICD-10 - F43.12) 01/04/2025 Panic attacks (ICD-10 - F41.0) 09/14/2024 Panic attacks (ICD-10 - F41.0) Attention [...] - Continue abilify 5 mg daily 05/04/2024 Panic attacks (ICD-10 - F41.0) MDD: [...] notes situational factors may be affecting assessment. 05/04/2024 Attention-defici t hyperactivity disorder, combined type [...] situational factors may be affecting assessment. 09/14/2024 Attention-defici t hyperactivity disorder, combined type [...] - Continue abilify 5 mg daily 10/14/2024 Panic attacks (ICD-10 - F41.0) 02/15/2025 Post-traumatic stress disorder, chronic (ICD-10 - F43.12) 01/04/2025 MDD (recurrent major depressive disorder) in remission (ICD-10 - F33.40) 03/22/2025 Post-traumatic stress disorder, chronic (ICD-10 - F43.12) 09/14/2024 Post-traumatic stress disorder, chronic (ICD-10 - [...] - Continue abilify 5 mg daily 05/04/2024 Post-traumatic stress disorder, chronic (ICD-10 - [...] notes situational factors may be affecting assessment. 10/14/2024 Encounter for screening for depression (ICD-10 [...] near-panic attacks, particularly in public spaces like [employer] [place], but has been able to manage these [...] Encourage healthy coping mechanisms for stress management 01/04/2025 Charity Duran, female, presents with increased anxiety and irritability, particularly noticeable in the afternoon when her medication wears off. Anxiety with possible medication-induced akathisia Assessment: Patient reports increased anxiety over the past month, becoming more frequent and intense. Symptoms include worry, reluctance to leave the house, and chest discomfort. The anxiety appears to worsen around 3 PM, coinciding with the wearing off of her morning medication (generic Concerta). Patient also experiences irritability, restlessness, and an inability to sit still at this time. These symptoms are consistent with akathisia, a possible side effect of aripiprazole (Del). The patient's current medication regimen includes generic Concerta, aripiprazole, and as-needed hydroxyzine, all taken at 5 AM. Blood pressure is reported as normal. No significant depression or frequent panic attacks noted. Plan: - Reduce aripiprazole dose to 2 mg daily - Monitor mood, anxiety, and irritability closely following dose adjustment - Continue generic Concerta - Continue hydroxyzine as needed for anxiety - Patient to message clinician through ellyn if problems arise - Follow up 4 weeks to reassess symptoms and medication efficacy, explore alternatvies for depression/mood management next visit 02/15/2025 Other Anne Duran, female, presents with worsening anxiety, including social anxiety, panic attacks, and intrusive thoughts, following a recent reduction in Abilify dosage. Generalized Anxiety Disorder with features of Social Anxiety and Panic Disorder Assessment: Patient reports significant exacerbation of anxiety symptoms over the past few weeks, coinciding with a recent reduction in Abilify dosage. Symptoms include nightmares, heart palpitations, excessive worry, and panic attacks in social situations such as grocery shopping. Patient describes difficulty controlling anxiety once it starts, with physical symptoms including chest pain and elevated heart rate (reported up to 162 bpm while cutting grass). Previous trials of multiple SSRIs, SNRIs, and other psychotropic medications have been unsuccessful or poorly tolerated. Current medications include Abilify (recently reduced), atomoxetine for ADHD, and as-needed hydroxyzine for anxiety. Patient denies current depressive symptoms and reports satisfaction with her job. Plan: - Start fluvoxamine (Luvox) XR 100 mg PO at bedtime - Informed patient of 2-6 week timeframe for full benefits - Continue Abilify 2 mg daily - Continue atomoxetine (dose not specified) - Continue hydroxyzine as needed for anxiety - Start propranolol as needed for physical anxiety symptoms, up to twice daily - Follow up in 4 weeks to assess response to new medication regimen Attention Deficit Hyperactivity Disorder (ADHD) Assessment: Patient has a history of ADHD, currently managed with atomoxetine. No specific ADHD symptoms or concerns were discussed during this encounter. Plan: - Continue atomoxetine for ADHD management Vitamin D Deficiency Assessment: Patient reports recent lab work resulted in recommendation for vitamin D supplementation. Plan: - Continue Vitamin D3 5000 units daily Medical Decision Making Anne Duran is a female patient with a history of anxiety and ADHD presenting with worsening anxiety symptoms, including nightmares, panic attacks, and social anxiety over the past few weeks. The patient's recent reduction in Abilify dosage appears to have exacerbated her symptoms, suggesting a possible benefit from the medication. Given the patient's history of poor response to multiple SSRIs, SNRIs, and other anxiety medications, the decision was made to trial fluvoxamine (Luvox), an SSRI with specific efficacy for social anxiety, panic disorder, and OCD-like symptoms. This choice was based on the patient's description of uncontrollable anxiety spirals and social anxiety-induced physical symptoms. The patient's report of constant chest pain and elevated heart rate (up to 162 bpm) during anxiety episodes prompted consideration of propranolol for management of physical anxiety symptoms. Recent lab work revealing vitamin D deficiency was noted but not directly addressed in the treatment plan for anxiety. 03/22/2025 Charity Duran, female, presents with improved mood and relaxation, but reports persistent fatigue, bilateral leg pain, chest pain, memory issues, and concerns about perimenopause. Mood disorder Assessment: Patient reports feeling a lot better and really super happy right now, indicating improvement in mood. However, she mentions a history of depression and anxiety, with recent exacerbation possibly related to hormonal changes (perimenopause). Patient also reports memory issues and past episodes of uncharacteristic behavior, including aggression. Plan: - Continue fluvoxamine - Patient given option to adjust dosing schedule: try 50 mg AM and 50 mg PM - Advised to try new dosing schedule on a weekend - Continue aripiprazole 2 mg - Continue as-needed hydroxyzine - Continue as-needed propranolol - Discuss potential for adding morning dose of fluvoxamine if evening anxiety or irritability increases Attention Deficit Hyperactivity Disorder (ADHD) Assessment: Patient is currently on methylphenidate (Concerta) for ADHD management. No specific complaints or concerns related to ADHD symptoms were discussed during this encounter. Plan: - Continue methylphenidate Fatigue Assessment: Patient reports persistent fatigue for the past few months, unrelated to medication use. She experiences excessive tiredness after work and daytime sleepiness, which is unusual for her. This fatigue persists despite reported good sleep at night. Differential diagnoses include perimenopause-rela casa symptoms, underlying medical conditions, or exacerbation of existing mental health issues. Plan: - Patient has made an appointment with primary care physician to address fatigue Bilateral leg pain Assessment: Patient reports bilateral leg pain. She expresses concern about cancer due to family history. Further evaluation is needed to determine the cause of the leg pain. Plan: - Anticipate further evaluation during upcoming primary care appointment Chest pain Assessment: Patient reports a history of chest pain that has been causing concern to others around her. She states the pain has improved recently, saying I haven't noticed my chest hurting quite as bad because that was my big thing. Plan: - Continue monitoring chest pain symptoms - Encourage patient to report any worsening or changes in chest pain Medical Decision Making Anne Duran is a female patient with a history of depression, anxiety, and ADHD, presenting with improved mood but persistent fatigue and bilateral leg pain for several months. The patient's fatigue, despite adequate sleep, and bilateral leg pain raise concerns about potential underlying medical conditions. Hormonal changes related to perimenopause are considered as a possible contributing factor to her symptoms, given their impact on mood, focus, sleep, and energy levels. The clinician is weighing the option of adjusting the fluvoxamine dosing schedule to provide more even coverage throughout the day, potentially addressing any evening anxiety or irritability. The patient's report of chest pain, while improved, is noted but not extensively explored in this encounter. The complexity of managing multiple psychiatric medications (fluvoxamine, aripiprazole, methylphenidate) alongside potential perimenopausal symptoms and fatigue of unclear etiology necessitates careful monitoring and potential adjustments to the treatment plan. Plan Of Treatment Next Appt Details Provider Name:Lucita lance, 05/19/2025 08:15:00 AM, [address] [facility] [address], [facility] [address], [place], [address], Insurance Providers Payer Name Payer Address Payer Phone Subscriber Number Group Number Insured Name Patient Relationship to Insured Coverage Start Date Coverage End Date [facility] [address] [place] [address] [id number] ANNE DURAN Self - patient is the insured Medical (General) History Medical History History ICD Code Problems: Attention deficit hyperactivit y disorder, combined type Chronic post-traumatic stress disorder Generalized anxiety disorder Moderate recurrent major depression Obesity Panic attack Surgical History Surgery Date(Month/Year) Tonsilectomy/adenoids 06/24/1982 Endometrial ablation (53610) with tubal 06/24/2002
--- OUTSIDE RECORDS SUMMARY | 2025-04-25 10:50 | XMS_ITS | Clinical Summary ---
Author Organization [facility] Address [address] [place] [address] Care Team Providers Care Manager Fund Name Role Phone Unavailable Primary Care Provider Unavailabl e Source Comments [facility],non-owned Affiliates and Associated Physician Practices is amultiple site organization consisting of ambulatory clinics and hospital sitesin [place], [place], [place] and [place]. This disclosure is being madepursuant to the Care Everywhere program and may not contain all information available regarding this patient. 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 Gender Identity Not on file Sexual Orientation Not on file Last Filed Vital Signs Vital Sign Reading Time Taken Comments Blood Pressure 126/86 08/06/2019 6:52 PM IRRIGATION SUPERVISOR Pulse 106 08/06/2019 6:52 PM IRRIGATION SUPERVISOR Temperature 36.8 C (98.3 F) 08/06/2019 6:52 PM IRRIGATION SUPERVISOR Respiratory Rate 18 08/06/2019 6:52 PM IRRIGATION SUPERVISOR Oxygen Saturation 98% 08/06/2019 6:52 PM IRRIGATION SUPERVISOR Inhaled Oxygen Concentration - - Weight 104.3 kg (230 lb) 08/06/2019 6:52 PM IRRIGATION SUPERVISOR Height 160 cm (5' 3) 08/06/2019 6:52 PM IRRIGATION SUPERVISOR Body Mass Index 40.74 08/06/2019 6:52 PM IRRIGATION SUPERVISOR Plan of Treatment Health Maintenance Due Date [...] 2021 ZOSTER VACCINE (1 of 2) 2021 DEPRESSION SCREENING 06/24/2024 COVID-19 VACCINE (1 - 2023-2 5 season) 2025 INFLUENZA VACCINE (#1) 2025 HIB VACCINE Aged Out No longer [...] complete this topic Insurance [employer] * Guarantor: Anne Hastings Account Type Relation to Patient Date of Phone Billing Address Personal/Family Self [address] [place] [id number] [facility]
--- OUTSIDE RECORDS SUMMARY | 2025-04-25 10:51 | XMS_ITS | Clinical Summary ---
Author Organization [facility] Address [address] [place] [address] Care Team Providers Care Tagman Name Role Phone Kareem Torres MD Primary Care Provider [phone] Gagan Reddy MD Unavailable [phone] Social History Tobacco Use Types Packs/Day [...] Vaccines (1 of 2) 2021 COVID-19 Vaccine (2024-2 6 season) 2025 Influenza Adult (#1) 2025 Hepatitis A Vaccines Aged Out No long er eligible based on patient's age to complete this topic Meningococcal B Vaccine Aged Out No l onger eligible based on patient's age to complete this topic Meningococcal Vaccine Aged Out No zachary edgardo eligible based on patient's age to complete this topic RSV Immunizations Under 20 Months Aged Out No longer eligible based on patient's age to complete this topic Insurance [facility] Care Teams Tagman Relationship Specialty Start Date End Date Kareem Torres MD [address] [place] [address] [address] [place] [address] PCP - General FAMILY PRACTICE 12/05/22 Gagan Reddy MD [facility] [place] [address] FAMILY [facility]IC[facility] SPORTS MEDICINE 12/05/22
--- OUTSIDE RECORDS SUMMARY | 2025-04-25 10:51 | XMS_ITS | Clinical Summary ---
Author Organization [facility] Address [address] [place] [address] Phone Care Team Providers Care Rn Oncology Name Role Phone Gagan Reddy MD Primary Care Provider [phone] Allergies Active Allergy Reactions Criticality Noted Date [...] Hiatal hernia 02/01/2020 Depression with anxiety 02/01/2020 Social History Tobacco Use Types Packs/Day Years [...] (#1) 2025 Medical Devices Implanted Type Area Loan Review Manager Device Identifier Shelf Expiration Date Model / Serial / Lot Seamguard Endogia 60 Blk [id number] - [id number] Implanted:Qty : 2 on 02/01/2020 by Soo Bowles MD at [facility] N/A: Abdomen [employer] 07/22/2022 [id number] / / [id number] Seamguard Endogia 60 Prpl [id number] - [id number] Implanted:Qty : 3 on 02/01/2020 by Soo Bowles MD at [facility] N/A: Abdomen [employer] 07/26/2022 [id number] / / [id number] 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 EST. AVG GLUCOSE, A1C 189 mg/dL 01/27/2020 11:36 AM CDT [facility] Blood Venipuncture / Unknown 01/27/2020 10:33 AM CDT 01/27/2020 11:11 AM CDT Narrative [facility] - 01/27/2020 11:36 AM CDT HGB A1C INTERPRETATION NORMAL: <5.7% PRE-DIABETES: 5.7 - 6.4% DIABETES: 6.5% OR GREATER Soo Bowles MD CHEMISTRY ORDERABLES Final Result [facility] CLIA# [id number] [place] [address] from Last 3 Months or Most Recently Relevant to Health Maintenance Insurance [id number] OPTIONS PPO [id number] [place] [address] [employer] (INTERNAL) [facility] Internal Plans Advance Directives For more information, please contact: [phone] * Full Code (Latest Code Status on File) Date Activated Date Inactivated Comments 02/01/2020 4:43 PM 02/02/2020 5:51 PM * Full Code Date Activated Date Inactivated Comments 02/01/2020 1:45 PM 02/01/2020 4:43 PM Care Teams Rn Oncology Relationship Specialty Start Date End Date Gagan Reddy MD [address] [place] [address] PCP - General Family Practice 01/25/20
== END 2025-04-25 10:47 | disposition home or self-care (01) ==
PROVIDERS: PCP Family Medicine; Visit Provider Nurse Practitioner
DX: S73.192A Other sprain of left hip, initial encounter (principal); K42.9 Umbilical hernia without obstruction or gangrene; M16.12 Unilateral primary osteoarthritis, left hip; M70.62 Trochanteric bursitis, left hip; M70.61 Trochanteric bursitis, right hip; M76.02 Gluteal tendinitis, left hip; M76.01 Gluteal tendinitis, right hip; M89.8X5 Other specified disorders of bone, thigh; M62.08 Separation of muscle (nontraumatic), other site; X58.XXXA Exposure to other specified factors, initial encounter
CPT/HCPCS: 70250; 73721